=== PATIENT | female | born 1990 | race Caucasian/White ===

== ENCOUNTER 2017-12-17 06:29 | Day surgery (SDC) | payer SELFPAY ==
[~2017-12-17] VITALS: Ht 177.8 cm; Wt 68.0 kg
[~2017-12-17 06:29] MED LIST: HYDR-3583 PO; IBP600T1 PO; IBUP200C PO; PREN1TAB39 PO
--- OUTSIDE RECORDS SUMMARY | 2017-12-17 06:33 | XMS REPORT ---
Author Author MAGGIE RAMOS [facility] eClinicalWorks Address Unknown Phone Unavailable Care Team Providers Care Insurance Agency Sales Manager Name Role Phone MAGGIE RAMOS Unavailable Allergies No Known Allergies Problems Problem Type Condition Code Onset Dates Condition Status Problem Screening examination for venereal disease V74.5 Active Problem Leukorrhea, not specified as infective 623.5 Active Problem Supervision of normal first V22.0 Active Problem Nonspecific abnormal results of thyroid function study 794.5 Active Problem Unspecified contraceptive surveillance V25.40 Active Problem Acute pharyngitis 462 Active Problem Cellulitis and abscess of leg, except foot 682.6 Active Problem Screening for malignant neoplasm of the cervix V76.2 Active Problem Other and unspecified noninfectious gastroenteritis and colitis 558.9 Active Problem examination or test, negative result V72.41 Active Problem Routine follow-up V24.2 Active Medications Medication Code System Code Instructions Start Date End Date Status Dosage Loestrin Fe 09/11 [facility] [place] 2] [address]-25 1-20 MG-MCG Orally Once a day Sep 23, 2015 1 tablet Results No Known Results Summary Purpose eClinicalWorks Submission
--- OUTSIDE RECORDS SUMMARY | 2017-12-17 06:33 | XMS REPORT ---
Author Author CHINEDU CORTEZ [facility] eClinicalWorks Address Unknown Phone Unavailable Care Team Providers Care Store Stock Help Name Role Phone CHINEDU CORTEZ CP Unavailable Allergies, Adverse Reactions, Alerts Substance Reaction Event Type N.K.D.A. Info Not Available Non Drug Allergy Problems Problem Type Condition Code Onset Dates Condition Status Problem Supervision of normal first V22.0 Active Problem Other and unspecified noninfectious gastroenteritis and colitis 558.9 Active Problem Leukorrhea, not specified as infective 623.5 Active Problem Cellulitis and abscess of leg, except foot 682.6 Active Problem Unspecified contraceptive surveillance V25.40 Active Problem Bleeding of cervix N88.8 Active Problem Routine follow-up V24.2 Active Problem Screening for malignant neoplasm of the cervix V76.2 Active Problem Acute pharyngitis 462 Active Problem examination or test, negative result V72.41 Active Assessment Well woman exam Z01.419 Active Assessment Bleeding of cervix N88.8 Active Problem Nonspecific abnormal results of thyroid function study 794.5 Active Assessment Encounter for surveillance of contraceptive pills Z30.41 Active Problem Screening examination for venereal disease V74.5 Active Medications Medication Code System Code Instructions Start Date End Date Status Dosage Loestrin Fe 09/11 [facility] [place] [address]-91 1-20 MG-MCG Orally Once a day Sep 23, 2015 1 tablet Procedures Procedure Coding System Code Date N.GONORRHOEAE, DNA, AMP PROB CPT-4 07263 May 28, 2016 TRICHOMONAS ASSAY W/OPTIC CPT-4 18754 May 28, 2016 CHYLMD TRACH, DNA, AMP PROBE CPT-4 66150 May 28, 2016 CULTURE, BACTERIA, OTHER CPT-4 51185 May 28, 2016 ESPARZA VAG, DNA, DIR PROBE CPT-4 28961 May 28, 2016 Preventive Care Est Pt. Age 18-39 CPT-4 85832 May 28, 2016 Vital Signs Date/Time: May 28, 2016 Blood Pressure Systolic 110 mmHg Weight 143 lbs Height 70.5 in BMI 20.23 Index Blood Pressure Diastolic 68 mmHg Results Name Result Date Reference Range Unit Abnormality Flag GC/CHLAMYDIA (SWAB OR URINE)-RAPID ----Chlamydia trachomatis, COLLIN Negative [id number] Negative ----Neisseria gonorrhoeae, COLLIN Negative [id number] Negative CULTURE, GENITAL ----Genital Culture, Routine Final report [id number] TRICHOMONAS (IN HOUSE) ----TRICHOMONAS negative [id number] ----Control + [id number] ----Lot # [id number] ----Exp date [id number] BACTERIAL VAGINOSIS (IN HOUSE) ----Exp date [id number] ----Control + [id number] ----Lot # [id number] ----RESULTS negative [id number] Summary Purpose eClinicalWorks Submission
--- OUTSIDE RECORDS SUMMARY | 2017-12-17 06:33 | XMS REPORT ---
Author Author CHINEDU CORTEZ [facility] [place] eClinicalWorks Address Unknown Phone Unavailable Care Team Providers Care Water Regulator And Valve Repairer Name Role Phone CHINEDU CORTEZ Unavailable Allergies No Known Allergies Problems Problem Type Condition Code Onset Dates Condition Status Problem Supervision of normal first V22.0 Active Problem Other and unspecified noninfectious gastroenteritis and colitis 558.9 Active Problem Leukorrhea, not specified as infective 623.5 Active Problem Nonspecific abnormal results of thyroid function study 794.5 Active Problem Screening examination for venereal disease V74.5 Active Problem Cellulitis and abscess of leg, except foot 682.6 Active Problem Unspecified contraceptive surveillance V25.40 Active Problem Bleeding of cervix N88.8 Active Problem Routine follow-up V24.2 Active Problem Screening for malignant neoplasm of the cervix V76.2 Active Problem Acute pharyngitis 462 Active Problem examination or test, negative result V72.41 Active Medications Medication Code System Code Instructions Start Date End Date Status Dosage Amoxicillin [facility] [address]-38 500 MG Orally 2 times a day Jun 03, 2016 Jun 13, 2016 1 capsule Results No Known Results Summary Purpose eClinicalWorks Submission
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
--- OUTSIDE RECORDS SUMMARY | 2017-12-17 06:34 | XMS REPORT ---
Author Author MAGGIE RAMOS [facility] eClinicalWorks Address Unknown Phone Unavailable Care Team Providers Care Histotechnician Name Role Phone MAGGIE RAMOS Unavailable Allergies [...] End Date Status Dosage Loestrin Fe 09/11 [facility] [id number] 1-20 MG-MCG Orally Once a day Sep 23, 2015 1 tablet Results No Known Results Summary Purpose eClinicalWorks Submission
[2017-12-17] MEDS ORDERED: MIDAZOLAM 2 MG/2 ML (VERSED) VIAL IV ONE (07:00)
[2017-12-17] MEDS ORDERED: DEXAMETHASONE 10 MG/ML (DECADRON) 1 ML VIAL ONE (07:08)
[2017-12-17] MEDS ORDERED: MIDAZOLAM 2 MG/2 ML (VERSED) VIAL ONE (07:08)
[2017-12-17] MEDS ORDERED: proPOfol 200 MG/20 ML (DIPRIVAN) VIAL IV ONE (07:08)
[2017-12-17] MEDS ORDERED: ONDANSETRON 4 MG/2 ML (SDV) Z0FRAN ONE (07:08)
[2017-12-17] MEDS ORDERED: fentaNYL INJECTION 100 MCG/2 ML AMP ONE (07:08)
[2017-12-17 07:10] VITALS: BP 114/73
[2017-12-17] MEDS ORDERED: SEVOFLURANE (ULTANE) 15 ML INHAL SOLN ONE ×2 (07:10→08:48)
[2017-12-17] MEDS ORDERED: LIDOCAINE PF 2% 5 ML (XYLOCAINE) VIAL ONE (07:10)
--- NOTE | 2017-12-17 07:12 | Progress Note-Pre Operative ---
Pre-Operative Progress Note H&P Reviewed The H&P was reviewed, patient examined and no changes noted. Date Seen by Provider: Dec 17, 2017 Time Seen by Provider: 07:12 Date H&P Reviewed: Dec 17, 2017 Time H&P Reviewed: 07:10 Pre-Operative Diagnosis: CIN3, + endocervical margins CHUCK SUMMERS DO Dec 17, 2017 7:12 am
[2017-12-17] MEDS ORDERED: BUP/EPI 0.5% 1:200,000 (SENSORCAINE) 30 ML VIAL ONE (07:27)
[2017-12-17] MEDS ORDERED: LACTATED RINGERS 1,000 ML IV PRN (07:28)
[2017-12-17 07:43] LABS: BASOPHILS % (AUTO) 0 % (0-10); EOSINOPHILS # (AUTO) 0.2 10^3/uL (0.0-0.3); EOSINOPHILS % (AUTO) 4 % (0-10); HEMATOCRIT 39 % (35-52); HEMOGLOBIN 13.8 G/DL (11.5-16.0); LYMPHOCYTES # (AUTO) 1.4 X 10^3 (1.0-4.0); LYMPHOCYTES % (AUTO) 27 % (12-44); MEAN CORPUSCULAR HEMOGLOBIN 31 PG (25-34); MEAN CORPUSCULAR HGB CONC 35 G/DL (32-36); MEAN CORPUSCULAR VOLUME 89 FL (80-99); MEAN PLATELET VOLUME 9.8 FL (7.4-10.4); MONOCYTES # (AUTO) 0.5 X 10^3 (0.0-1.0); MONOCYTES % (AUTO) 10 % (0-12); NEUTROPHILS % (AUTO) 58 % (42-75); PLATELET COUNT 224 10^3/uL (130-400); RED BLOOD COUNT 4.41 10^6/uL (4.35-5.85); WHITE BLOOD COUNT 5.1 10^3/uL (4.3-11.0)
[2017-12-17] MEDS ORDERED: D5 LR IV SOLUTION 1,000 ML IV SCH (08:05)
[2017-12-17] MEDS ORDERED: IBUP-1773 PO (08:07)
--- NOTE | 2017-12-17 08:08 | Discharge Inst-Women's Service ---
Discharge Inst-Women's Serv Depart Medication/Instructions New, Converted or Re-Newed RX: RX on Chart Consults/Follow Up Additional Follow Up: Yes Orders/Referrals Dr. Summers in 3 weeks Activity Activity: Activity as Tolerated Driving Instructions: No Driving for 1 Week NO SMOKING: NO SMOKING Nothing Inside Vagina: No Douching, No [place], No Tampons Diet Discharge Diet: No Restrictions Symptoms to Report to : Bleeding Excessive, Pain Increased, Fever Over 101 Degrees F, Vaginal Bleeding Increase, Questions/Concerns For Any Problems or Questions: Contact Your Physician CHUCK SUMMERS DO Dec 17, 2017 8:07 am
[2017-12-17] MEDS ORDERED: KETOROLAC 30 MG/ML VIAL IVP ONE (08:15)
[2017-12-17] MEDS ORDERED: HYDROcodone/APAP 5 MG/325 MG (LORTAB) TAB PO PRN (08:15)
[2017-12-17] MEDS ORDERED: ONDANSETRON 4 MG/2 ML (SDV) Z0FRAN IVP PRN ×2 (08:15→09:00)
[2017-12-17] MEDS ORDERED: HYDROmorphone 2 MG/ML VIAL (DILAUDID) IVP PRN (09:00)
[2017-12-17] MEDS ORDERED: MEPERIDINE (DEMEROL) INJ 50 MG/ML IVP PRN (09:00)
[2017-12-17] MEDS ORDERED: fentaNYL INJECTION 100 MCG/2 ML AMP IVP PRN (09:00)
[2017-12-17 09:40] VITALS: BP 112/72
--- NOTE | 2017-12-17 09:50 | Anesthesia-General Post-Op ---
General Patient Condition Mental Status/LOC: Same as Preop Cardiovascular: Satisfactory Nausea/Vomiting: Absent Respiratory: Satisfactory Pain: Controlled Complications: Absent Post Op Complications Complications None Follow Up Care/Instructions Patient Instructions None needed. Anesthesia/Patient Condition Patient Condition Patient is doing well, no complaints, stable vital signs, no apparent adverse anesthesia problems. No complications reported per nursing. D/C home per [facility] Criteria: Yes JESSIKA BAE CRNA Dec 17, 2017 09:50
[2017-12-17 10:10] VITALS: BP 100/66
--- NOTE | 2017-12-17 10:29 | Anesthesia-General Post-Op ---
General Patient Condition Mental Status/LOC: Same as Preop Cardiovascular: Satisfactory Nausea/Vomiting: Absent Respiratory: Satisfactory Pain: Controlled Complications: Absent Post Op Complications Complications None Follow Up Care/Instructions Patient Instructions None needed. Anesthesia/Patient Condition Patient Condition Patient is doing well, no complaints, stable vital signs, no apparent adverse anesthesia problems. D/C home per [facility] Criteria: Yes ROCKY TRIANA DO Dec 17, 2017 10:29
[2017-12-17 10:40] VITALS: BP 102/63
[2017-12-17 10:55] VITALS: BP 102/63
--- NOTE | 2017-12-17 14:40 | OPERATIVE REPORT ---
DATE OF SERVICE: 12/17/2017 PREOPERATIVE DIAGNOSIS: A 27-year-old female with KATHLEEN 3 extending past the endocervical margin. POSTOPERATIVE DIAGNOSIS: A 27-year-old female with KATHLEEN 3 extending past the endocervical margin. PROCEDURE: Cold knife conization. SURGEON: Dr. Chuck Summers. ANESTHESIA: LMA. ESTIMATED BLOOD LOSS: Minimal. URINE OUTPUT: Not recorded. FLUIDS: 800 mL of lactated Ringer solution. FINDINGS: Grossly normal external female genitalia and vaginal mucosa with evidence of previous LEEP, conization and biopsy of the cervix. SPECIMEN SENT: Was cold knife conization of the cervix. INDICATION FOR PROCEDURE: This 27-year-old female is a patient that I had seen in my office on 2 previous occasions, one for colposcopy secondary to a high-grade Pap smear followed up by a conization biopsy via loop cauterization secondary to positive ECC and KATHLEEN 3. The biopsy results from her LEEP resulted in positive endocervical margins. So, I followed up with the patient and discussed with her short term follow up cytology versus proceeding with a deeper biopsy for the endocervical component in the form of performing a cold knife conization. Risks of the procedure were discussed with the patient in detail and after all of her questions were answered, she was scheduled for the procedure at her next earliest convenience. OPERATIVE REPORT IN DETAIL: Once in the operating room, anesthesia was found to be adequate. She was placed in dorsal lithotomy position, prepped and draped in a normal sterile fashion. A weighted speculum was inserted into the patient's vagina. A right angle retractor was used to visualize the cervix. Cervix was grasped at the 12 o'clock position using a long Allis clamp. I then performed a paracervical block at 3 and 9 o'clock positions using 0.25% Marcaine. After this was done, I infiltrated the margins of the transformation zone around the lateral resection margin of the cone biopsy using 0.25% Marcaine with epinephrine to help prevent significant amounts of bleeding. I also placed 2-0 Vicryl suture at 3 and 9 o'clock position on the cervix to limit the bleeding to the cervix as well during the biopsy. After this is done, I used an 11 blade to trace around the margins of the previous conization biopsy. I then grasped that biopsy area and using a curved Cota scissors, I resected the cone biopsy going up the endocervix and retrievement of specimen of a cone biopsy that I sent as a cold knife cone biopsy of the cervix after which there is significant amount of bleeding noted from the dissection planes, which I am able to make hemostatic using ball cautery. I place a Sturmdorf stitch around the margins of my dissection planes, which ensures excellent hemostasis. Cervical patency is evaluated after the procedure and the cervix is still open and the uterus still is able to be sounded. I then applied estrogen solution to the dissection planes to ensure excellent postoperative hemostasis. The patient tolerated the procedure well and was taken to recovery area in stable condition after all instruments were removed from the patient's vagina. Lap and sponge count was correct at the end of the procedure, instrument count was correct as well. Job ID: [id number] DocumentID: [id number] Dictated Date: 12/17/2017 09:07:06 Sociology Faculty Member Date: 12/17/2017 14:40:36 Dictated By: CHUCK SUMMERS DO
== END 2017-12-17 10:55 | disposition home or self-care (01) ==
LOC: SDC 06:29
PROVIDERS: ATTEND Obstetrics & Gynecology
DX: N87.0 Mild cervical dysplasia (principal)
CPT/HCPCS: 36415; 84703; 85025; 86850; 86900; 86901; 87081; 88307; 94664

== ENCOUNTER 2019-01-18 01:21 | Emergency (ER) | payer SELFPAY ==
[~2019-01-18] VITALS: Ht 177.8 cm; Wt 68.0 kg
[~2019-01-18 01:21] MED LIST changes: +IBUP-1773 PO
[2019-01-18] MEDS: TETANUS,DIPTH,PERTUSS P/F (BOOSTRIX) 0.5 ML VIAL IM ONE (01:39)
[2019-01-18] MEDS: LIDOCAINE/EPI 2% 1:100,00 (XYLOCAINE) 20 ML VIAL INJ ONE (01:40)
--- NOTE | 2019-01-18 02:10 | ED General ---
General Chief Complaint: Laceration Stated Complaint: LEFT LEG LAC Nursing Triage Note: LEFT LEG LACERATION Nursing Sepsis Screen: No Definite Risk Source of Information: Patient Exam Limitations: No Limitations History of Present Illness Date Seen by Provider: January 18, 2019 Time Seen by Provider: 01:25 Initial Comments This 28-year-old woman presents to the emergency room with a laceration on her left anterior lower leg. She was carrying a bag of trash with a broken beer bottle and it. The broken glass was sticking out of the trash bag cut her. She attempted to Steri-Strip and superglue it. This was not effective and she continued to have bleeding. Injury happened around 23:00. She does not know when her last tetanus immunization was. She denies any other injury. Allergies and Home Medications Allergies Coded Allergies: No Known Drug Allergies (Unverified , 12/14/17) Home Medications No Active Prescriptions or Reported Meds Patient Home Medication List Home Medication List Reviewed: Yes Review of Systems Review of Systems Constitutional: no symptoms reported EENTM: no symptoms reported Respiratory: no symptoms reported Cardiovascular: no symptoms reported Gastrointestinal: no symptoms reported Genitourinary: no symptoms reported Musculoskeletal: no symptoms reported Skin: see HPI Psychiatric/Neurological: No Symptoms Reported Past Evqihqp-Ljerht-Qgiapi Hx Past Med/Social Hx: Reviewed Nursing Past Med/Soc Hx Patient Social History Alcohol Use: Occasionally Uses Recreational Drug Use: No Smoking Status: Never a Smoker 2nd Hand Smoke Exposure: Yes Recent Foreign Travel: No Contact w/Someone Who Travel: No Recent Infectious Disease Expo: No Recent Hopitalizations: No Immunizations Up To Date Tetanus Booster (TDap): Unknown PED Vaccines UTD: Yes Seasonal Allergies Seasonal Allergies: No Past Medical History Surgeries: Yes Section Respiratory: No Cardiac: No Neurological: No : No Last Menstrual Period: December 28, 2018 Reproductive Disorders: Yes Genitourinary: No Gastrointestinal: No Musculoskeletal: No Endocrine: No HEENT: No Cancer: No Psychosocial: No Integumentary: No Blood Disorders: No Family Medical History No Pertinent Family Hx Physical Exam Vital Signs Vital Signs - First Documented 01/18/19 01:27 Temp 97.0 Pulse 90 Resp 18 B/P (MAP) 142/77 (98) Pulse Ox 99 O2 Delivery Room Air Capillary Refill : Less Than 3 Seconds Height, Weight, BMI Height: 5'10.00" Weight: 150lbs. 0.0oz. 68.452915ba; 21.5 BMI Method:Stated General Appearance: No Apparent Distress, WD/WN HEENT: Normal ENT Inspection Respiratory: No Respiratory Distress Extremity: Other (3 cm laceration on the anterior left lower) Neurologic/Psychiatric: Alert, Oriented x3, No Motor/Sensory Deficits, Normal Mood/Affect, it business process architect II-XII Norm as Tested Skin: Normal Color, Warm/Dry, Other (see above) Procedures/Interventions Wound Location: Lower Extremities Other Wound Location Anterior left lower leg Wound Length (cm): 3 Wound's Depth, Shape: linear, sub Q Wound Explored: clean Irrigated w/ Saline (ccs): 500 Betadine Prep?: Yes Anesthesia: Lidocaine w/ Epi Volume Anesthetic (ccs): 2 Suture: Prolene Suture Size: 4-0 Number of Sutures: 6 Sterile Dressing Applied?: Yes Progress Cut surface was sprayed with lidocaine with epinephrine. Skin was cleaned with alcohol. Local anesthetic was injected. Wound was then scrubbed with sterile saline and chlorhexidine. It was then irrigated with sterile saline. Skin was then prepped with Betadine and wound was approximated with 4-0 Prolene. Wound was then dressed with a large Band-Aid and antibiotic ointment. Patient tolerated the procedure well. Progress/Results/Core Measures Suspected Sepsis Recent Fever Within 48 Hours: No Infection Criteria Present: None New/Unexplained Altered Menta: No Sepsis Screen: No Definite Risk SIRS Temperature:97.0 Pulse: 90 Respiratory Rate: 18 Blood Pressure 142 /77 Mean: 98 Results/Orders My Orders Orders - JAROCHO WASHBURN MD Lidocaine/Epi 2% 1:100,000 (Xylocaine/Ep (01/18/19 01:45) Dipht,Pertuss(Acell),Tet Adult (Boostrix (01/18/19 01:45) Sulfamethoxazole/Trimet Ds Tab (Bactrim (01/18/19 02:15) Medications Given in ED Current Medications Medications Dose Ordered Sig/Paul Route Start Time Stop Time Status Last Admin Dose Admin Diphtheria/ Tetanus/Acell Pertussis 0.5 ml ONCE ONCE IM 01/18/19 01:45 01/18/19 01:46 DC 01/18/19 01:39 0.5 ML Lidocaine/ Epinephrine 20 ml ONCE ONCE INJ 01/18/19 01:45 01/18/19 01:46 DC 01/18/19 01:40 20 ML Trimethoprim/ Sulfamethoxazole 1 ea ONCE ONCE PO 01/18/19 02:15 01/18/19 02:16 DC 01/18/19 02:17 1 EA Vital Signs/I&O 01/18/19 01:27 Temp 97.0 Pulse 90 Resp 18 B/P (MAP) 142/77 (98) Pulse Ox 99 O2 Delivery Room Air Capillary Refill : Less Than 3 Seconds Blood Pressure Mean: 98 Progress Note : Progress Note Wound was cleaned and repaired. Tetanus booster was administered. A dose of Bactrim was administered for infection prophylaxis. Departure Impression Primary Impression: Laceration of leg Qualified Codes: S81.812A - Laceration without foreign body, left lower leg, initial encounter Disposition: HOME, SELF-CARE Condition: Improved Departure-Patient Inst. Decision time for Depature: 02:00 Referrals: [facility] (PCP) Primary Care Physician CHUCK SUMMERS DO (Family) Primary Care Physician Patient Instructions: Laceration Repair With Stitches (DC) Add. Discharge Instructions: Monitor your wound for signs of infection such as increasing redness, increasing swelling, puslike drainage, or fever. Return to care promptly if you notice these symptoms. You may shower and allow soapy water to run over your wound. Do not scrub directly over the stitches. Do not submerge until stitches are removed. Return in 7-10 days to have your stitches removed. You may take Tylenol and/or ibuprofen for pain. Cover when active or sleeping to prevent stitches from snagging. All discharge instructions reviewed with patient and/or family. Voiced understanding. Scripts No Active Prescriptions or Reported Meds JAROCHO WASHBURN MD January 18, 2019 02:10
[2019-01-18 02:15] VITALS: BP 142/77
[2019-01-18] MEDS: TRIM/SULFAMETH 160/800 (SEPTRA DS) TAB PO ONE (02:17)
== END 2019-01-18 02:17 | disposition home or self-care (01) ==
LOC: EDUNIT# 01:21 → ER 01:23
DX: S81.812A Laceration without foreign body, left lower leg, initial encounter (principal); Z77.22 Contact with and (suspected) exposure to environmental tobacco smoke (acute) (chronic); Z98.890 Other specified postprocedural states; Z23 Encounter for immunization; Y28.0XXA Contact with sharp glass, undetermined intent, initial encounter
CPT/HCPCS: 12013; 90471; 90715

== ENCOUNTER 2019-01-26 17:32 | Emergency (ER) | payer SELFPAY ==
[~2019-01-26] VITALS: Ht 177.8 cm; Wt 68.0 kg
[2019-01-26 17:39] VITALS: BP 136/69
--- OUTSIDE RECORDS SUMMARY | 2019-01-26 17:53 | XMS REPORT ---
Author Author Migration, Doctor Organization [facility] Address Unknown Phone Unavailable Care Team Providers Care Substation Engineer Name Role Phone Migration, Doctor Unavailable Unavailable PROBLEMS No Known Problems ALLERGIES No Information ENCOUNTERS Encounter Location Date Diagnosis [facility] [id number] [place] [address] Aug, Acute tonsillitis, unspecified etiology J03.90 [facility] [place] [address] [address] Oct, [facility] [place] [id number] [place] [address] Sep, Well woman exam Z01.419 ; Possible exposure to STD Z20.2 and control counseling Z30.[address] [id number] Nov, Encounter for surveillance of contraceptive pills Z30.[address] [id number] May, [address] [id number] May, Bleeding of cervix N88.8 ; Well woman exam Z01.419 and Encounter for surveillance of contraceptive pills Z30.41 [id number] [place] [id number] Nov, [id number] [place] [id number] Oct, [address] [id number] Sep, [address] [id number] Mar, [address] [id number] Mar, [address] [id number] [id number] Mar, Missed period 626.4 and Screening for STD (sexually transmitted disease) V74.5 [facility] [address], [place] [address] Nov, [facility] [place] [facility] [address], [place] [address] Nov, [facility] [place] [facility] [address], [place] [address] Aug, [facility] [id number] [id number] Aug, [facility] [address], [place] [address] Aug, [facility] [id number] [id number] Aug, [facility] [address], [place] [address] Aug, [facility] [id number] [id number] Jul, [facility] [address], [place] [address] Jul, [facility] [address] [id number] [id number] Jun, [facility] [id number], [place] [address] Jun, [facility] [address] [id number] [id number] Jun, [facility] [place] [address], [place] [address] Jun, [facility] [address] [id number][place] [id number] Jul, [facility] [place] [address], [place] [address] Jul, [facility] [place] [facility] [address] [id number], [place] [address] Jun, [facility] [address] [id number] [place] [id number] Jun, [facility] [place] [facility] [address] [id number] [place] [address] Jun, [facility] [place] [facility] [address] [id number] [place] [address] Jun, [facility] [address] [id number] [place] [id number] Mar, [facility] [address] [id number] [place] [id number] Oct, [facility] [address] [id number] [place] [id number] Jun, [facility] [address] [id number] [place] [id number] Jun, [facility] [place] [facility] [address] [facility] [id number], [place] [address] Jun, [facility] [place] [facility] [address] [facility] [id number], [place] [address] Jun, [facility] [place] [facility] [address] [facility] [id number], [place] [address] Jun, [facility] [place] [facility] [address] [facility] [id number], [place] [address] Jun, [facility] [address] [id number][place] [id number] Jun, [facility] [address] [id number], [place] [address] Jun, [facility] [address] [id number] [place] [id number] Jun, [facility] [place] [facility] [address] [id number], [place] [address] Jun, [facility] [address] [id number][place] [id number] Feb, [facility] [address] [id number] [place] [id number] Feb, [facility] [address] [facility] [id number], [place] [address] Feb, [facility] [address] [id number] [place] [id number] Feb, [facility] [address] [id number] [place] [id number] Feb, [facility] [address] [id number] [place] [id number] Jan, [facility] [address] [facility] [id number], [place] [address] Jan, [facility] [address] [facility] [id number], [place] [address] Jan, [facility] [address] [id number] [place] [id number] Jan, [facility] [address], [place] [address] Jan, [facility] [address] [id number] [place] [id number] December, [facility] [address] [id number] [place] [id number] December, [facility] [address] [id number] [place] [id number] December, [facility] [address] [facility] [id number], [place] [address] December, [facility] [address] [id number] [place] [id number] Nov, [facility] [address] [id number] [place] [id number] Oct, [facility] [address] [id number] [place] [id number] Oct, [facility] [address] [id number] [place] [id number] Oct, [facility] [address] [facility] [id number], [place] [address] Oct, [facility] [address] [facility] [id number], [place] [address] Oct, [facility] [address] [facility] [id number], [place] [address] Sep, [facility] [address] [facility] [id number] [place] [id number] Aug, [facility] [address] [id number] [place] [id number] Aug, [facility] [address] [facility] [id number] [place] [id number] Aug, [facility] [address] [facility] [id number] [place] [address] 15 Aug, 2011 [facility] [address], [place] [address] 14 Aug, 2011 [facility] [id number] [place] [id number] 13 Aug, 2011 [facility] [address] [facility] [id number] [place] [id number] 12 Aug, 2011 [facility] [id number], [place] [address] Jul, [facility] [place] [facility] [id number], [place] [address] 08 Jul, 2011 [facility] [place] [facility] [id number], [place] [address] 10 Sep, 2010 [facility] [place] [facility] [address] [facility] [id number], [place] [address] Aug, [facility] [place] [facility] [id number] [place] [address] Jul, [facility] [address] [facility] [id number], [place] [address] Jun, [facility] [place] [id number], [place] [address] Jul, [facility] [place] [address] [facility] [id number] [place] [address] Jul, [facility] [place] [address] [facility] [id number] [place] [address] Jul, IMMUNIZATIONS No Known Immunizations SOCIAL HISTORY Never Assessed REASON FOR VISIT EMR-[facility] PLAN OF CARE VITAL SIGNS MEDICATIONS No Known Medications RESULTS No Results PROCEDURES No Known procedures INSTRUCTIONS MEDICATIONS ADMINISTERED No Known Medications MEDICAL (GENERAL) HISTORY Type Description Date Surgical History section 2011 Surgical History cell removal, cervix 12/2017
--- OUTSIDE RECORDS SUMMARY | 2019-01-26 17:54 | XMS REPORT ---
Author Author Migration, Doctor Organization [facility] Address Unknown Phone Unavailable Care Team Providers Care Volunteer Manager Name Role Phone Migration, Doctor Unavailable Unavailable PROBLEMS No Known Problems ALLERGIES No Information ENCOUNTERS Encounter Location Date Diagnosis [facility] [id number] [place] [address] Aug, Acute tonsillitis, unspecified etiology J03.90 [facility] [address] [address] Oct, [facility] [id number] [place] [address] Sep, Well woman exam Z01.419 ; Possible exposure to STD Z20.2 and control counseling Z30.[address] [id number] Nov, Encounter for surveillance of contraceptive pills Z30.[address] [id number] May, [address] [id number] May, Bleeding of cervix N88.8 ; Well woman exam Z01.419 and Encounter for surveillance of contraceptive pills Z30.41 [id number] [place] [id number] Nov, [id number] [place] [id number] Oct, [address] [id number] Sep, [address] [id number] Mar, [address] [id number] Mar, [address] [id number] [id number] Mar, Missed period 626.4 and Screening for STD (sexually transmitted disease) V74.5 [facility] [address]00565[address], [place] [address] Nov, [facility] [place] [facility] [address]65[address], [place] [address] Nov, [facility] [place] [facility] [address]65[address], [place] [address] Aug, [facility] [id number], [place] [id number] Aug, [facility] [address], [place] [address] Aug, [facility] [id number], [place] [id number] Aug, [facility] [address], [place] [address] Aug, [facility] [id number], [place] [id number] Jul, [facility] [address]00565[address], [place] [address] Jul, [facility] [address] [id number], [place] [address] Jun, [facility] [address] [id number], [place] [address] Jun, [facility] [address] [id number][place] [address]18[address] Jun, [facility] [place] [facility] [address]00565100[place], [place] [address] Jun, [facility] [address] [id number][place] 17[address]36[address] Jul, [facility] [place] [facility] [address]00565100[place], [place] [address] Jul, [facility] [place] [facility] [address] [id number], [place] [address] Jun, [facility] [address] [id number] [place] [id number] Jun, [facility] [place] [facility] [address] [id number] [place] [address] Jun, [facility] [place] [facility] [address] [id number] [place] [address] Jun, [facility] [address] [id number] [place] [id number] Mar, [facility] [address] [id number] [place] [id number] Oct, [facility] [address] [id number] [place] [id number] Jun, [facility] [address] [id number] [place] [id number] Jun, [facility] [place] [facility] [address] [facility] [id number], [place] [address] Jun, [facility] [place] [facility] [address] [facility] [id number], [place] [address] Jun, [facility] [place] [facility] [address] [facility] [id number], [place] [address] Jun, [facility] [place] [facility] [address] [facility] [id number], [place] [address] Jun, [facility] [address] [id number], [place] [id number] Jun, [facility] [place] [facility] [address] [id number], [place] [address] Jun, [facility] [address] [id number] [place] [id number] Jun, [facility] [place] [facility] [address] [id number], [place] [address] Jun, [facility] [address] [id number], [place] 466350393 Feb, [facility] [address] [id number] [place] [id number] Feb, [facility] [address] [facility] [id number], [place] [address] Feb, [facility] [address] [id number] [place] [id number] Feb, [facility] [address] [id number] [place] 028839659 Feb, [facility] [address] [id number] [place] [id number] Jan, [facility] [place] [facility] [address] [facility] [id number], [place] [address] Jan, [facility] [place] [facility] [address] [facility] [id number], [place] [address] Jan, [facility] [address] [id number] [place] [id number] Jan, [facility] [address]00565100[place], [place] [address] Jan, [facility] [address] [id number] [place] 565465394 December, [facility] [address] [id number] [place] [id number] December, [facility] [address] [id number] [place] [id number] December, [facility] [address] [facility] [id number], [place] [address] December, [facility] [address] [id number] [place] [id number] Nov, [facility] [address] [id number] [place] 187579299 Oct, [facility] [address] [id number] [place] [id number] Oct, [facility] [address] [id number] [place] [id number] Oct, [facility] [address] [facility] [id number], [place] [address] Oct, [facility] [address] [facility] [id number], [place] [address] Oct, [facility] [address] [facility] [id number], [place] [address] Sep, [facility] [address] [facility] [id number] [place] [id number] Aug, [facility] [address] [id number] [place] [id number] Aug, [facility] [address] [facility] [id number] [place] [id number] Aug, [facility] [address] [facility] [id number] [place] [address] 15 Aug, 2011 [facility] [address]00565100[place], [place] [address] 14 Aug, 2011 [facility] [id number] [place] [id number] 13 Aug, 2011 [facility] [address] [facility] [id number] [place] [id number] 12 Aug, 2011 [facility] [address]00565100[place], [place] [address] Jul, [facility] [place] [facility] [address]00565100[place], [place] [address] 08 Jul, 2011 [facility] [place] [facility] [address]00565100[place], [place] [address] 10 Sep, 2010 [facility] [place] [facility] [address] [facility] [id number], [place] [address] Aug, [facility] [place] [facility] [id number] [address] Jul, [facility] [place] [facility] [address] [facility] [id number], [place] [address] Jun, [facility] [place] [facility] [address]00565100[place], [place] [address] Jul, [facility] [address] [facility] [id number] [place] [address] Jul, [facility] [address] [facility] [id number] [place] [address] Jul, IMMUNIZATIONS No Known Immunizations SOCIAL HISTORY Never Assessed REASON FOR VISIT EMR-[facility] PLAN OF CARE VITAL SIGNS MEDICATIONS Medication Instructions Dosage Frequency Start Date End Date Duration Status Keflex 250 mg 2 capsule by Oral route 2 times per day for 10 days Mar, Active RESULTS No Results PROCEDURES No Known procedures INSTRUCTIONS MEDICATIONS ADMINISTERED No Known Medications MEDICAL (GENERAL) HISTORY Type Description Date Surgical History section 2011 Surgical History cell removal, cervix 12/2017
--- OUTSIDE RECORDS SUMMARY | 2019-01-26 17:54 | XMS REPORT ---
Author Author Migration, Doctor Organization [facility] Address Unknown Phone Unavailable Care Team Providers Care Hall Manager Name Role Phone Migration, Doctor Unavailable Unavailable PROBLEMS No Known Problems ALLERGIES No Information ENCOUNTERS Encounter Location Date Diagnosis [facility] [id number] [place] [address] Aug, Acute tonsillitis, unspecified etiology J03.90 [facility] [address] [address] Oct, [facility] [id number] [place] [address] Sep, Well woman exam Z01.419 ; Possible exposure to STD Z20.2 and control counseling Z30.[address] [id number] Nov, Encounter for surveillance of contraceptive pills Z30.[address] [id number] May, [address] [id number] May, Bleeding of cervix N88.8 ; Well woman exam Z01.419 and Encounter for surveillance of contraceptive pills Z30.41 [id number] [place] [address] [id number] Nov, [id number] [place] [address] [id number] Oct, [address] [id number] Sep, [address] [id number] Mar, [address] [id number] Mar, [address] [id number][place] 145578368 Mar, Missed period 626.4 and Screening for STD (sexually transmitted disease) V74.5 [facility] [address]00565100[place] [address] Nov, [facility] [place] [facility] [address]00565100[place] [address] Nov, [facility] [place] [facility] [address]00565100[place] [address] Aug, [facility] [id number], [place] 544[address]2346 Aug, [facility] [address]00565[address] [address] Aug, [facility] [id number], [place] 3[address]00047 Aug, [facility] [address]00565100[place] [address] Aug, [facility] [id number], [place] [id number] Jul, [facility] [address]00565100[place] [address] Jul, [facility] [address] [id number], [place] 897647129 Jun, [facility] [address] [id number] [address] Jun, [facility] [address] [id number], [place] 4738[address]306 Jun, [facility] [place] [facility] [address]00565100[place] [address] Jun, [facility] [address] [id number][place] [address]1870 Jul, [facility] [place] [facility] [address]00565100[place] [address] Jul, [facility] [place] [facility] [address] [id number] [address] Jun, [facility] [address] [id number] [place] [address] Jun, [facility] [place] [facility] [address] [id number] [place] [address] Jun, [facility] [place] [facility] [address] [id number] [place] [address] Jun, [facility] [address] [id number] [place] [id number] Mar, [facility] [address] [id number] [place] [id number] Oct, [facility] [address] [id number] [place] [id number] Jun, [facility] [address] [id number] [place] 167988852 Jun, [facility] [place] [facility] [address] [facility] [id number] [place] [address] Jun, [facility] [place] [facility] [address] [facility] [id number] [place] [address] Jun, [facility] [place] [facility] [address] [facility] [id number] [place] [address] Jun, [facility] [place] [facility] [address] [facility] [id number] [address] Jun, [facility] [address] [id number], [place] 023551279 Jun, [facility] [place] [facility] [address] [id number] [place] [address] Jun, [facility] [address] [id number] [place] [id number] Jun, [facility] [place] [facility] [address] [id number] [place] [address] Jun, [facility] [address] [id number], [place] 499244606 Feb, [facility] [address] [id number] [place] 692170070 Feb, [facility] [address] [facility] [id number] [place] [address] Feb, [facility] [address] [id number] [place] 528425760 Feb, [facility] [address] [id number] [place] 600334768 Feb, [facility] [address] [id number] [place] 110676058 Jan, [facility] [place] [facility] [address] [facility] [id number] [place] [address] Jan, [facility] [place] [facility] [address] [facility] [id number] [place] [address] Jan, [facility] [address] [id number] [place] [id number] Jan, [facility] [address]00565100[place] [address] Jan, [facility] [address] [id number] [place] 037415628 December, [facility] [address] [id number] [place] 716339527 December, [facility] [address] [id number] [place] 118143391 December, [facility] [address] [facility] [id number] [place] [address] December, [facility] [address] [id number] [place] 268225031 Nov, [facility] [address] [id number] [place] 260808131 Oct, [facility] [address] [id number] [place] 373909845 Oct, [facility] [address] [id number] [place] [id number] Oct, [facility] [address] [facility] [id number] [place] [address] Oct, [facility] [address] [facility] [id number] [place] [address] Oct, [facility] [address] [facility] [id number] [place] [address] Sep, [facility] [address] [facility] [id number] [place] [id number] Aug, [facility] [address] [id number] [place] [id number] Aug, [facility] [address] [facility] [id number] [place] 433840791 Aug, [facility] [address] [facility] [id number] [place] [address] 15 Aug, 2011 [facility] [address]00565100[place] [address] 14 Aug, 2011 [facility] [id number] [place] [id number] 13 Aug, 2011 [facility] [address] [facility] [id number] [place] [id number] 12 Aug, 2011 [facility] [address]00565100[place] [address] Jul, [facility] [place] [facility] [address]00565100[place] [address] 08 Jul, 2011 [facility] [place] [facility] [address]00565100[place] [address] 10 Sep, 2010 [facility] [place] [facility] [address] [facility] [id number] [place] [address] Aug, [facility] [place] [facility] [address] [id number] [place] [address] Jul, [facility] [place] [facility] [address] [facility] [id number] [place] [address] Jun, [facility] [place] [facility] [address]00565100[place] [address] Jul, [facility] [address] [facility] [id number] [place] [address] Jul, [facility] [address] [facility] [id number] [place] [address] Jul, IMMUNIZATIONS No Known Immunizations SOCIAL HISTORY Never Assessed REASON FOR VISIT EMR-[facility] [place] [place] PLAN OF CARE VITAL SIGNS MEDICATIONS No Known Medications RESULTS No Results PROCEDURES No Known procedures INSTRUCTIONS MEDICATIONS ADMINISTERED No Known Medications MEDICAL (GENERAL) HISTORY Type Description Date Surgical History section 2011 Surgical History cell removal, cervix 12/2017
--- OUTSIDE RECORDS SUMMARY | 2019-01-26 17:54 | XMS REPORT ---
Author Author Migration, Doctor Organization [facility] Address Unknown Phone Unavailable Care Team Providers Care Public Weigher Name Role Phone Migration, Doctor Unavailable Unavailable PROBLEMS No Known Problems ALLERGIES No Information ENCOUNTERS Encounter Location Date Diagnosis [facility] [id number] [place] [address] Aug, Acute tonsillitis, unspecified etiology J03.90 [facility] [address] [address] Oct, [facility] [id number] [place] [address] Sep, Well woman exam Z01.419 ; Possible exposure to STD Z20.2 and control counseling Z30.[address] [id number] Nov, Encounter for surveillance of contraceptive pills Z30.[address] [id number] May, [address] [id number] May, Bleeding of cervix N88.8 ; Well woman exam Z01.419 and Encounter for surveillance of contraceptive pills Z30.41 [id number] [place] [address] [id number] Nov, [id number] [place] [id number] Oct, [address] [id number] Sep, [address] [id number] Mar, [address] [id number] Mar, [address] [id number], [place] [id number] Mar, Missed period 626.4 and Screening for STD (sexually transmitted disease) V74.5 [facility] [address]00565100[place], [place] [address] Nov, [facility] [place] [facility] [address]00565100[place], [place] [address] Nov, [facility] [place] [facility] [address]00565100[place], [place] [address] Aug, [facility] [id number], [place] [id number] Aug, [facility] [address]00565100[place], [place] [address] Aug, [facility] [id number], [place] 422[address]8544 Aug, [facility] [address]00565100[place], [place] [address] Aug, [facility] [id number], [place] 685155352 Jul, [facility] [address]00565100[place], [place] [address] Jul, [facility] [address] [id number], [place] 538328802 Jun, [facility] [address] [id number], [place] [address] Jun, [facility] [address] [id number], [place] 388779668 Jun, [facility] [place] [facility] [address]00565100[place], [place] [address] Jun, [facility] [address] [id number], [place] 291969737 Jul, [facility] [place] [facility] [address]00565100[place], [place] [address] Jul, [facility] [place] [facility] [address] [id number], [place] [address] Jun, [facility] [address] [id number] [place] 857[address]34[address] Jun, [facility] [place] [facility] [address] [id number] [place] [address] Jun, [facility] [place] [facility] [address] [id number] [place] [address] Jun, [facility] [address] [id number] [place] [id number] Mar, [facility] [address] [id number] [place] 114[address] Oct, [facility] [address] [id number] [place] 88[address] Jun, [facility] [address] [id number] [place] 099782265 Jun, [facility] [place] [facility] [address] [facility] [id number], [place] [address] Jun, [facility] [place] [facility] [address] [facility] [id number], [place] [address] Jun, [facility] [place] [facility] [address] [facility] [id number], [place] [address] Jun, [facility] [place] [facility] [address] [facility] [id number], [place] [address] Jun, [facility] [address] [id number] [id number] Jun, [facility] [place] [facility] [address] [id number], [place] [address] Jun, [facility] [address] [id number] [place] [id number] Jun, [facility] [place] [facility] [address] [id number], [place] [address] Jun, [facility] [address] [id number][place] [id number] Feb, [facility] [address] [id number] [place] [id number] Feb, [facility] [address] [facility] [id number], [place] [address] Feb, [facility] [address] [id number] [place] [id number] Feb, [facility] [address] [id number] [place] [id number] Feb, [facility] [address] [id number] [place] [id number] Jan, [facility] [place] [facility] [address] [facility] [id number], [place] [address] Jan, [facility] [place] [facility] [address] [facility] [id number], [place] [address] Jan, [facility] [address] [id number] [place] [id number] Jan, [facility] [id number], [place] [address] Jan, [facility] [address] [id number] [place] [id number] December, [facility] [address] [id number] [place] [id number] December, [facility] [address] [id number] [place] [id number] December, [facility] [address] [facility] [id number], [place] [address] December, [facility] [address] [id number] [place] [id number] Nov, [facility] [address] [id number] [place] [id number] Oct, [facility] [address] [id number] [place] [id number] Oct, [facility] [address] [id number] [place] [id number] Oct, [facility] [address] [facility] [id number], [place] [address] Oct, [facility] [address] [facility] [id number], [place] [address] Oct, [facility] [address] [facility] [id number], [place] [address] Sep, [facility] [address] [facility] [id number] [place] [id number] Aug, [facility] [address] [id number] [place] [id number] Aug, [facility] [address] [facility] [id number] [place] [id number] Aug, [facility] [address] [facility] [id number] [place] [address] 15 Aug, 2011 [facility] [id number], [place] [address] 14 Aug, 2011 [facility] [id number] [place] [id number] 13 Aug, 2011 [facility] [address] [facility] [id number] [place] [id number] 12 Aug, 2011 [facility] [id number], [place] [address] Jul, [facility] [place] [facility] [id number], [place] [address] 08 Jul, 2011 [facility] [place] [facility] [id number], [place] [address] 10 Sep, 2010 [facility] [place] [facility] [address] [facility] [id number], [place] [address] Aug, [facility] [place] [facility] [id number] [address] Jul, [facility] [place] [facility] [address] [facility] [id number], [place] [address] Jun, [facility] [place] [facility] [id number], [place] [address] Jul, [facility] [address] [facility] [id number] [place] [address] Jul, [facility] [address] [facility] [id number] [place] [address] Jul, IMMUNIZATIONS No Known Immunizations SOCIAL HISTORY Never Assessed REASON FOR VISIT EMR-[facility] [place] PLAN OF CARE VITAL SIGNS MEDICATIONS No Known Medications RESULTS No Results PROCEDURES No Known procedures INSTRUCTIONS MEDICATIONS ADMINISTERED No Known Medications MEDICAL (GENERAL) HISTORY Type Description Date Surgical History section 2011 Surgical History cell removal, cervix 12/2017
--- OUTSIDE RECORDS SUMMARY | 2019-01-26 17:54 | XMS REPORT ---
Author Author Migration, Doctor Organization [facility] Address Unknown Phone Unavailable Care Team Providers Care Paint Factory Worker Name Role Phone Migration, Doctor Unavailable Unavailable PROBLEMS No Known Problems ALLERGIES No Information ENCOUNTERS Encounter Location Date Diagnosis [facility] [id number] [place] [address] Aug, Acute tonsillitis, unspecified etiology J03.90 [facility] [address] [address] Oct, [facility] [id number] [place] [address] Sep, Well woman exam Z01.419 ; Possible exposure to STD Z20.2 and control counseling Z30.[address] [id number] Nov, Encounter for surveillance of contraceptive pills Z30.[address] [id number] May, [address] [id number] May, Bleeding of cervix N88.8 ; Well woman exam Z01.419 and Encounter for surveillance of contraceptive pills Z30.41 [id number] [place] [id number] Nov, [id number] [place] [id number] Oct, [address] [id number] Sep, [address] [id number] Mar, [address] [id number] Mar, [address] [id number] [id number] Mar, Missed period 626.4 and Screening for STD (sexually transmitted disease) V74.5 [facility] [address] [address] Nov, [facility] [place] [facility] [id number] [address] Nov, [facility] [place] [facility] [address] [address] Aug, [facility] [id number][place] [id number] Aug, [facility] [address]100[place] [address] Aug, [facility] [id number], [place] [id number] Aug, [facility] [address] [address] Aug, [facility] [id number], [place] [address] Jul, [facility] [address]65100[place] [address] Jul, [facility] [address] [id number] [id number] Jun, [facility] [address] [id number] [address] Jun, [facility] [address] [id number] [address]47870 Jun, [facility] [place] [facility] [address]100[place] [address] Jun, [facility] [address] [id number], [place] [address] Jul, [facility] [place] [facility] [address]65100[place] [address] Jul, [facility] [place] [facility] [address] [id number] [place] [address] Jun, [facility] [address] [id number] [place] [id number] Jun, [facility] [place] [facility] [address] [id number] [place] [address] Jun, [facility] [place] [facility] [address] [id number] [place] [address] Jun, [facility] [address] [id number] [place] [id number] Mar, [facility] [address] [id number] [place] [id number] Oct, [facility] [address] [id number] [place] [id number] Jun, [facility] [address] [id number] [place] [id number] Jun, [facility] [place] [facility] [address] [facility] [id number] [place] [address] Jun, [facility] [place] [facility] [address] [facility] [id number] [place] [address] Jun, [facility] [place] [facility] [address] [facility] [id number] [place] [address] Jun, [facility] [place] [facility] [address] [facility] [id number] [place] [address] Jun, [facility] [address] [id number], [place] [id number] Jun, [facility] [place] [facility] [address] [id number] [place] [address] Jun, [facility] [address] [id number] [place] [id number] Jun, [facility] [place] [facility] [address] [id number] [place] [address] Jun, [facility] [address] [id number], [place] 6896069[address] Feb, [facility] [address] [id number] [place] 3478[address] Feb, [facility] [address] [facility] [id number] [place] [address] Feb, [facility] [address] [id number] [place] [address]88[address]23[address] Feb, [facility] [address] [id number] [place] 0979[address] Feb, [facility] [address] [id number] [place] [id number] Jan, [facility] [place] [facility] [address] [facility] [id number] [place] [address] Jan, [facility] [place] [facility] [address] [facility] [id number] [address] Jan, [facility] [address] [id number] [place] [id number] Jan, [facility] [address]00565100[place] [address] Jan, [facility] [address] [id number] [place] [id number] December, [facility] [address] [id number] [place] 6[address]47[address] December, [facility] [address] [id number] [place] [address] December, [facility] [address] [facility] [id number] [place] [address] December, [facility] [address] [id number] [place] [id number] Nov, [facility] [address] [id number] [place] [id number] Oct, [facility] [address] [id number] [place] [address]1177[address]45 Oct, [facility] [address] [id number] [place] [id number] Oct, [facility] [address] [facility] [id number] [place] [address] Oct, [facility] [address] [facility] [id number] [place] [address] Oct, [facility] [address] [facility] [id number] [address] Sep, [facility] [address] [facility] [id number] [place] [id number] Aug, [facility] [address] [id number] [place] [id number] Aug, [facility] [address] [facility] [id number] [place] 6[address] Aug, [facility] [address] [facility] [id number] [place] [address] 15 Aug, 2011 [facility] [address]65100[place] [address] 14 Aug, 2011 [facility] [id number] [place] [address] 13 Aug, 2011 [facility] [address] [facility] [id number] [place] [id number] 12 Aug, 2011 [facility] [address]00565100[place] [address] Jul, [facility] [place] [facility] [address]00565100[place] [address] 08 Jul, 2011 [facility] [place] [facility] [address]65100[place] [address] 10 Sep, 2010 [facility] [place] [facility] [address] [facility] [id number] [place] [address] Aug, [facility] [place] [facility] [address] [id number] [place] [address] Jul, [facility] [place] [facility] [address] [facility] [id number] [place] [address] Jun, [facility] [place] [facility] [address]65100[place] [address] Jul, [facility] [address] [facility] [id number] [place] [address] Jul, [facility] [address] [facility] [id number] [place] [address] Jul, IMMUNIZATIONS No Known Immunizations SOCIAL HISTORY Never Assessed REASON FOR VISIT E[facility] PLAN OF CARE VITAL SIGNS MEDICATIONS No Known Medications RESULTS No Results PROCEDURES No Known procedures INSTRUCTIONS MEDICATIONS ADMINISTERED No Known Medications MEDICAL (GENERAL) HISTORY Type Description Date Surgical History section 2011 Surgical History cell removal, cervix 12/2017
--- OUTSIDE RECORDS SUMMARY | 2019-01-26 17:54 | XMS REPORT ---
Author Author Migration, Doctor Organization [facility] Address Unknown Phone Unavailable Care Team Providers Care Research Neuropsychologist Name Role Phone Migration, Doctor Unavailable Unavailable PROBLEMS No Known Problems ALLERGIES No Information ENCOUNTERS Encounter Location Date Diagnosis [facility] [id number] [place] [address] Aug, Acute tonsillitis, unspecified etiology J03.90 [facility] [address] [address] Oct, [facility] [id number] [place] [address] Sep, Well woman exam Z01.419 ; Possible exposure to STD Z20.2 and control counseling Z30.[address] [id number] Nov, Encounter for surveillance of contraceptive pills Z30.[address] [id number] May, [address] [id number] May, Bleeding of cervix N88.8 ; Well woman exam Z01.419 and Encounter for surveillance of contraceptive pills Z30.41 [id number] [place] [address] [id number] Nov, [id number] [place] [id number] Oct, [address] [id number] Sep, [address] [id number] Mar, [address] [id number] Mar, [address] [id number] [place] [address] Mar, Missed period 626.4 and Screening for STD (sexually transmitted disease) V74.5 [facility] [address]00565100[place], [place] [address] Nov, [facility] [place] [facility] [address]00565100[place], [place] [address] Nov, [facility] [place] [facility] [address]65[address], [place] [address] Aug, [facility] [id number] [place] [address] Aug, [facility] [address]100[place], [place] [address] Aug, [facility] [id number] [place] [address] Aug, [facility] [address]00565100[place], [place] [address] Aug, [facility] [id number] [place] [id number] Jul, [facility] [address]00565100[place], [place] [address] Jul, [facility] [address] [id number] [place] [address] Jun, [facility] [address] [id number], [place] [address] Jun, [facility] [address] [id number] [place] [address] Jun, [facility] [place] [facility] [address], [place] [address] Jun, [facility] [address] [id number] [place] [address] Jul, [facility] [place] [facility] [address], [place] [address] Jul, [facility] [place] [facility] [address] [id number], [place] [address] Jun, [facility] [address] [id number] [place] [id number] Jun, [facility] [place] [facility] [address] [id number] [place] [address] Jun, [facility] [place] [facility] [address] [id number] [place] [address] Jun, [facility] [address] [id number] [place] [id number] Mar, [facility] [address] [id number] [place] 107[address] Oct, [facility] [address] [id number] [place] [id number] Jun, [facility] [address] [id number] [place] [address] Jun, [facility] [place] [facility] [address] [facility] [id number], [place] [address] Jun, [facility] [place] [facility] [address] [facility] [id number], [place] [address] Jun, [facility] [place] [facility] [address] [facility] [id number], [place] [address] Jun, [facility] [place] [facility] [address] [facility] [id number], [place] [address] Jun, [facility] [address] [id number] [place] 490[address] Jun, [facility] [place] [facility] [address] [id number], [place] [address] Jun, [facility] [address] [id number] [place] [address]33[address] Jun, [facility] [place] [facility] [address] [id number], [place] [address] Jun, [facility] [address] [id number] [place] 864159153 Feb, [facility] [address] [id number] [place] 744[address]16[address] Feb, [facility] [address] [facility] [id number], [place] [address] Feb, [facility] [address] [id number] [place] [id number] Feb, [facility] [address] [id number] [place] [id number] Feb, [facility] [address] [id number] [place] 945754764 Jan, [facility] [place] [facility] [address] [facility] [id number], [place] [address] Jan, [facility] [place] [facility] [address] [facility] [id number], [place] [address] Jan, [facility] [address] [id number] [place] 065261678 Jan, [facility] [address]00565100[place], [place] [address] Jan, [facility] [address] [id number] [place] [id number] December, [facility] [address] [id number] [place] 410[address]69[address] December, [facility] [address] [id number] [place] 800[address] December, [facility] [address] [facility] [id number], [place] [address] December, [facility] [address] [id number] [place] 3017[address] Nov, [facility] [address] [id number] [place] 20559[address] Oct, [facility] [address] [id number] [place] 743560659 Oct, [facility] [address] [id number] [place] 0575[address]83 Oct, [facility] [address] [facility] [id number], [place] [address] Oct, [facility] [address] [facility] [id number], [place] [address] Oct, [facility] [address] [facility] [id number], [place] [address] Sep, [facility] [address] [facility] [id number] [place] 758[address]52[address] Aug, [facility] [address] [id number] [place] 808683082 Aug, [facility] [address] [facility] [id number] [place] 069541588 Aug, [facility] [address] [facility] [id number] [place] [address] 15 Aug, 2011 [facility] [address]00565100[place], [place] [address] 14 Aug, 2011 [facility] [id number] [place] [address] 13 Aug, 2011 [facility] [address] [facility] [id number] [place] [id number] 12 Aug, 2011 [facility] [address]00565100[place], [place] [address] Jul, [facility] [place] [facility] [address]005[address]100[place], [place] [address] 08 Jul, 2011 [facility] [place] [facility] [address]00565[address], [place] [address] 10 Sep, 2010 [facility] [place] [facility] [address] [facility] [id number], [place] [address] Aug, [facility] [place] [facility] [address] [id number] [place] [address] Jul, [facility] [place] [facility] [address] [facility] [id number], [place] [address] Jun, [facility] [place] [facility] [address]00565100[place], [place] [address] Jul, [facility] [address] [facility] [id number] [place] [address] Jul, [facility] [address] [facility] [id number] [place] [address] Jul, IMMUNIZATIONS No Known Immunizations SOCIAL HISTORY Never Assessed REASON FOR VISIT EMR-[facility] PLAN OF CARE VITAL SIGNS MEDICATIONS No Known Medications RESULTS No Results PROCEDURES No Known procedures INSTRUCTIONS MEDICATIONS ADMINISTERED No Known Medications MEDICAL (GENERAL) HISTORY Type Description Date Surgical History section 2011 Surgical History cell removal, cervix 12/2017
--- OUTSIDE RECORDS SUMMARY | 2019-01-26 17:54 | XMS REPORT ---
Author Author Migration, Doctor Organization [facility] Address Unknown Phone Unavailable Care Team Providers Care Television Maintenance Worker Name Role Phone Migration, Doctor Unavailable Unavailable PROBLEMS No Known Problems ALLERGIES No Information ENCOUNTERS Encounter Location Date Diagnosis [facility] [id number] [place] [address] Aug, Acute tonsillitis, unspecified etiology J03.90 [facility] [address] [address] Oct, [facility] [id number] [place] [address] Sep, Well woman exam Z01.419 ; Possible exposure to STD Z20.2 and control counseling Z30.[address] [id number] Nov, Encounter for surveillance of contraceptive pills Z30.[address] [id number] May, [address] [id number] May, Bleeding of cervix N88.8 ; Well woman exam Z01.419 and Encounter for surveillance of contraceptive pills Z30.41 [id number] [place] [address] [id number] Nov, [id number] [place] [id number] Oct, [address] [id number] Sep, [address] [id number] Mar, [address] [id number] Mar, [address] [id number], [place] [address]88[address]07 Mar, Missed period 626.4 and Screening for STD (sexually transmitted disease) V74.5 [facility] [address]00565100[place], [place] [address] Nov, [facility] [place] [facility] [address]00565100[place], [place] [address] Nov, [facility] [place] [facility] [address]00565100[place], [place] [address] Aug, [facility] [id number], [place] [id number] Aug, [facility] [address]00565100[place], [place] [address] Aug, [facility] [id number], [place] 72[address] Aug, [facility] [address]00565100[place], [place] [address] Aug, [facility] [id number], [place] [id number] Jul, [facility] [address]00565100[place], [place] [address] Jul, [facility] [address] [id number], [place] [address]40 Jun, [facility] [address] [id number], [place] [address] Jun, [facility] [address] [id number], [place] [id number] Jun, [facility] [place] [facility] [address]00565100[place], [place] [address] Jun, [facility] [address] [id number], [place] [address]36[address]776 Jul, [facility] [place] [facility] [address]00565100[place], [place] [address] Jul, [facility] [place] [facility] [address] [id number], [place] [address] Jun, [facility] [address] [id number] [place] 6[address] Jun, [facility] [place] [facility] [address] [id number] [place] [address] Jun, [facility] [place] [facility] [address] [id number] [place] [address] Jun, [facility] [address] [id number] [place] [id number] Mar, [facility] [address] [id number] [place] [id number] Oct, [facility] [address] [id number] [place] [address]43[address] Jun, [facility] [address] [id number] [place] [id number] Jun, [facility] [place] [facility] [address] [facility] [id number], [place] [address] Jun, [facility] [place] [facility] [address] [facility] [id number], [place] [address] Jun, [facility] [place] [facility] [address] [facility] [id number], [place] [address] Jun, [facility] [place] [facility] [address] [facility] [id number], [place] [address] Jun, [facility] [address] [id number], [place] [id number] Jun, [facility] [place] [address] [id number], [place] [address] Jun, [facility] [address] [id number] [place] [id number] Jun, [facility] [address] [id number], [place] [address] Jun, [facility] [address] [id number][place] [id number] Feb, [facility] [address] [id number] [place] [id number] Feb, [facility] [address] [facility] [id number], [place] [address] Feb, [facility] [address] [id number] [place] [id number] Feb, [facility] [address] [id number] [place] [id number] Feb, [facility] [address] [id number] [place] [id number] Jan, [facility] [address] [facility] [id number], [place] [address] Jan, [facility] [address] [facility] [id number], [place] [address] Jan, [facility] [address] [id number] [place] [id number] Jan, [facility] [id number], [place] [address] Jan, [facility] [address] [id number] [place] [id number] December, [facility] [address] [id number] [place] [id number] December, [facility] [address] [id number] [place] [id number] December, [facility] [address] [facility] [id number], [place] [address] December, [facility] [address] [id number] [place] [id number] Nov, [facility] [address] [id number] [place] [id number] Oct, [facility] [address] [id number] [place] [id number] Oct, [facility] [address] [id number] [place] [id number] Oct, [facility] [address] [facility] [id number], [place] [address] Oct, [facility] [address] [facility] [id number], [place] [address] Oct, [facility] [address] [facility] [id number], [place] [address] Sep, [facility] [address] [facility] [id number] [place] [id number] Aug, [facility] [address] [id number] [place] [id number] Aug, [facility] [address] [facility] [id number] [place] [id number] Aug, [facility] [address] [facility] [id number] [place] [address] 15 Aug, 2011 [facility] [id number], [place] [address] 14 Aug, 2011 [facility] [id number] [place] [id number] 13 Aug, 2011 [facility] [address] [facility] [id number] [place] [id number] 12 Aug, 2011 [facility] [id number], [place] [address] Jul, [facility] [id number], [place] [address] 08 Jul, 2011 [facility] [id number], [place] [address] 10 Sep, 2010 [facility] [address] [facility] [id number], [place] [address] Aug, [facility] [id number] [place] [address] Jul, [facility] [address] [facility] [id number], [place] [address] Jun, [facility] [id number], [place] [address] Jul, [facility] [address] [facility] [id number] [place] [address] Jul, [facility] [address] [facility] [id number] [place] [address] Jul, IMMUNIZATIONS No Known Immunizations SOCIAL HISTORY Never Assessed REASON [place] VISIT [place] [place] VITAL SIGNS MEDICATIONS No Known Medications RESULTS No Results PROCEDURES No Known procedures INSTRUCTIONS MEDICATIONS ADMINISTERED No Known Medications MEDICAL (GENERAL) HISTORY Type Description Date Surgical History section 2011 Surgical History cell removal, cervix 12/2017
--- OUTSIDE RECORDS SUMMARY | 2019-01-26 17:55 | XMS REPORT ---
Author Author DELORIS ESEQUIEL Organization [facility] Address [address] [place] [address] Care Team Providers Care Tricot Knitter Name Role Phone DELORISKWABENA RICHARDY Unavailable PROBLEMS Type Condition ICD9-CM Code YKP78-FG Code Onset Dates Condition Status SNOMED Code Problem Bleeding of cervix N88.8 Active 41104580 ALLERGIES No Known Allergies ENCOUNTERS Encounter Location Date Diagnosis [facility] [address] [address] Oct, [facility] [address] [address] Sep, Well woman exam Z01.419 ; Possible exposure to STD Z20.2 and control counseling Z30.[address] [id number] Nov, Encounter for surveillance of contraceptive pills Z30.[address] [id number] May, [address] [id number] May, Bleeding of cervix N88.8 ; Well woman exam Z01.419 and Encounter for surveillance of contraceptive pills Z30.41 [facility] [id number] [place] [address] [id number] Nov, [address] [id number] Oct, [address] [id number] Sep, [address] [id number] Mar, [address] [id number] Mar, [facility] [address] [facility] [id number] [id number] Mar, Missed period 626.4 and Screening for STD (sexually transmitted disease) V74.5 [facility] [address] [id number] [address] Nov, [facility] [address]00565[address], [place] [address] Nov, [facility] [address] [id number], [place] [address] Aug, [facility] [address] [id number][place] [id number] Aug, [facility] [address]00565[address], [place] [address] Aug, [facility] [id number][place] [id number] Aug, [facility] [address]00565[address], [place] [address] Aug, [facility] [address] [id number][place] [id number] Jul, [facility] [address]00565100[place], [place] [address] Jul, [facility] [address] [id number][place] [address] Jun, [facility] [address] [id number], [place] [address] Jun, [facility] [address] [facility] [id number][place] [id number] Jun, [facility] [address]65100[place], [place] [address] Jun, [facility] [address] [facility] [id number][place] [id number] Jul, [facility] [address]00565100[place], [place] [address] Jul, [facility] [place] [facility] [address] [id number] [place] [address] Jun, [facility] [address] [id number] [place] [id number] Jun, [facility] [place] [facility] [address] [id number] [place] [address] Jun, [facility] [place] [facility] [address] [id number] [place] [address] Jun, [facility] [address] [id number] [place] [id number] Mar, [facility] [address] [id number] [place] [id number] Oct, [facility] [address] [id number] [place] [address] Jun, [facility] [address] [id number][place] [address] Jun, [facility] [place] [facility] [address] [id number], [place] [address] Jun, [facility] [place] [facility] [address] [facility] [id number], [place] [address] Jun, [facility] [place] [facility] [address] [id number], [place] [address] Jun, [facility] [place] [facility] [address] [facility] [id number], [place] [address] Jun, [facility] [address] [id number], [place] [address] Jun, [facility] [place] [facility] [address] [facility] [id number], [place] [address] Jun, [facility] [address] [id number], [place] [id number] Jun, [facility] [place] [facility] [address] [facility] [id number], [place] [address] Jun, [facility] [address] [id number] [place] [address] Feb, [facility] [address] [id number] [place] [address] Feb, [facility] [place] [facility] [address] [facility] [id number] [place] [address] Feb, [facility] [address] [id number] [place] [address] Feb, [facility] [address] [id number] [place] [address] Feb, [facility] [address] [id number] [place] [id number] Jan, [facility] [place] [facility] [address] [facility] [id number] [place] [address] Jan, [facility] [place] [facility] [address] [id number], [place] [address] Jan, [facility] [address] [id number] [place] [address] Jan, [facility] [place] [facility] [address] [facility] [id number], [place] [address] Jan, [facility] [address] [id number] [place] [address] December, [facility] [address] [id number] [place] [address] December, [facility] [address] [id number] [place] [id number] December, [facility] [place] [facility] [address] [facility] [id number], [place] [address] December, [facility] [address] [id number] [place] [address] Nov, [facility] [address] [id number] [place] [address] Oct, [facility] [address] [id number] [place] 3755[address] Oct, [facility] [address] [id number] [place] [address] Oct, [facility] [place] [facility] [address] [facility] [id number], [place] [address] Oct, [facility] [address] [facility] [id number], [place] [address] Oct, [facility] [place] [facility] [address] [facility] [id number], [place] [address] Sep, [facility] [address] [facility] [id number], [place] [id number] Aug, [facility] [address] [facility] [id number], [place] [address] Aug, [facility] [address] [facility] [id number], [place] [id number] 24 Aug, 2011 [facility] [place] [facility] [address] [facility] [id number], [place] [address] 15 Aug, 2011 [facility] [place] [facility] [address]65[address], [place] [address] 14 Aug, 2011 [facility] [address] [id number], [place] [address] 13 Aug, 2011 [facility] [address] [id number] [id number] 12 Aug, 2011 [facility] [place] [facility] [address]65[address], [place] [address] Jul, [facility] [place] [facility] [address]00565100[place], [place] [address] Jul, [facility] [place] [facility] [address] [facility] [id number], [place] [address] Sep, [facility] [place] [facility] [address] [facility] [id number], [place] [address] Aug, [facility] [place] [facility] [address] [facility] [id number], [place] [address] Jul, [facility] [place] [facility] [address] [facility] [id number], [place] [address] Jun, [facility] [place] [facility] [address] [facility] [id number], [place] [address] Jul, [facility] [address] [facility] [id number], [place] [address] Jul, [facility] [address] [facility] [id number], [place] [address] Jul, IMMUNIZATIONS No Known Immunizations SOCIAL HISTORY Never Assessed REASON FOR VISIT Well Woman Exam--tcuppettRN PLAN OF CARE Activity Details Follow Up 1 Year Reason:Well woman Pending Test PAP REFLEX TO HPV IF ASCUS VITAL SIGNS Height 70.5 in 2017-10-11 Weight 156.3 lbs 2017-10-11 Temperature 98.1 degrees Fahrenheit 2017-10-11 Heart Rate 76 bpm 2017-10-11 Respiratory Rate 18 2017-10-11 BMI 22.11 kg/m2 2017-10-11 Blood pressure systolic 112 mmHg 2017-10-11 Blood pressure diastolic 70 mmHg 2017-10-11 MEDICATIONS Medication Instructions Dosage Frequency Start Date End Date Duration Status Loestrin 09/11 1-20 MG-MCG Orally Once a day 1 tablet 24h Sep, 28 days Active RESULTS No Results PROCEDURES Procedure Date Ordered Result Body Site SPECIMEN HANDLING Oct 11, 2017 No Charge Oct 11, 2017 VENIPUNCT, ROUTINE* Oct 11, 2017 CULTURE, BACTERIA, OTHER Oct 11, 2017 TRICHOMONAS ASSAY W/OPTIC Oct 11, 2017 URINE TEST Oct 11, 2017 Bacterial Vaginosis In House Oct 11, 2017 INSTRUCTIONS MEDICATIONS ADMINISTERED No Known Medications MEDICAL (GENERAL) HISTORY Type Description Date Surgical History section 2011
--- OUTSIDE RECORDS SUMMARY | 2019-01-26 17:55 | XMS REPORT ---
Author Author DELORIS ESEQUIEL Organization [facility] Address [address] [place] [address] Care Team Providers Care Finger Buff Sewer Name Role Phone KWABENA PUENTESY Unavailable PROBLEMS Type Condition ICD9-CM Code LIM85-PP Code Onset Dates Condition Status SNOMED Code Problem Bleeding of cervix N88.8 Active [id number] ALLERGIES No Information ENCOUNTERS Encounter Location Date Diagnosis [facility] [id number] [place] [address] Oct, [facility] [address] [address] Sep, Well woman exam Z01.419 ; Possible exposure to STD Z20.2 and control counseling Z30.[address] [id number] Nov, Encounter for surveillance of contraceptive pills Z30.[address] [id number] May, [address] [id number] May, Bleeding of cervix N88.8 ; Well woman exam Z01.419 and Encounter for surveillance of contraceptive pills Z30.41 [facility] [id number] [place] [id number] Nov, [address] [id number] Oct, [address] [id number] Sep, [facility] [address] [id number] Mar, [address] [id number] Mar, [facility] [address] [facility] [id number] [place] [address] Mar, Missed period 626.4 and Screening for STD (sexually transmitted disease) V74.5 [facility] [address] [facility] [id number], [place] [address] Nov, [facility] [address]00565100[place], [place] [address] Nov, [facility] [place] [facility] [address] [facility] [id number], [place] [address] Aug, [facility] [id number] [place] [address] Aug, [facility] [address]00565100[place], [place] [address] Aug, [facility] [id number] [place] [address] Aug, [facility] [address]00565100[place], [place] [address] Aug, [facility] [address] [id number] [place] [address] Jul, [facility] [address]00565100[place], [place] [address] Jul, [facility] [address] [id number] [place] [address] Jun, [facility] [address] [id number], [place] [address] Jun, [facility] [address] [facility] [id number] [place] [address] Jun, [facility] [address]00565100[place], [place] [address] Jun, [facility] [address] [facility] [id number] [place] [address] Jul, [facility] [address]00565100[place], [place] [address] Jul, [facility] [place] [facility] [address] [id number], [place] [address] Jun, [facility] [address] [id number] [place] [address] Jun, [facility] [place] [facility] [address] [id number] [place] [address] Jun, [facility] [place] [facility] [address] [id number] [place] [address] Jun, [facility] [address] [id number] [place] [id number] Mar, [facility] [address] [id number] [place] [id number] Oct, [facility] [address] [id number] [place] [address] Jun, [facility] [address] [id number] [place] [address]1840[address]47 Jun, [facility] [place] [facility] [address] [id number], [place] [address] Jun, [facility] [place] [facility] [address] [facility] [id number], [place] [address] Jun, [facility] [place] [facility] [address] [facility] [id number], [place] [address] Jun, [facility] [place] [facility] [address] [facility] [id number], [place] [address] Jun, [facility] [address] [id number] [place] [id number] Jun, [facility] [place] [facility] [address] [facility] [id number], [place] [address] Jun, [facility] [address] [id number] [place] [address] Jun, [facility] [place] [facility] [address] [facility] [id number], [place] [address] Jun, [facility] [address] [id number] [place] [id number] Feb, [facility] [address] [id number] [place] [address]44[address] Feb, [facility] [place] [facility] [address] [facility] [id number], [place] [address] Feb, [facility] [address] [id number] [place] [address] Feb, [facility] [address] [id number] [place] 39[address] Feb, [facility] [address] [id number] [place] 92[address] Jan, [facility] [place] [facility] [address] [facility] [id number] [place] [address] Jan, [facility] [place] [facility] [address] [id number], [place] [address] Jan, [facility] [address] [id number] [place] [address] Jan, [facility] [place] [facility] [address] [facility] [id number], [place] [address] Jan, [facility] [address] [id number] [place] 9875[address] December, [facility] [address] [id number] [place] [address] December, [facility] [address] [id number] [place] [address] December, [facility] [place] [facility] [address] [facility] [id number], [place] [address] December, [facility] [address] [id number] [place] [id number] Nov, [facility] [address] [id number] [place] [address] Oct, [facility] [address] [id number] [place] [address] Oct, [facility] [address] [id number] [place] 8[address] Oct, [facility] [place] [facility] [address] [id number], [place] [address] Oct, [facility] [address] [facility] [id number], [place] [address] Oct, [facility] [place] [facility] [address] [facility] [id number], [place] [address] Sep, [facility] [address] [facility] [id number] [place] [id number] Aug, [facility] [address] [facility] [id number] [place] [address] Aug, [facility] [address] [facility] [id number] [place] [address] Aug, [facility] [place] [facility] [address] [facility] [id number], [place] [address] 15 Aug, 2011 [facility] [address] [facility] [id number], [place] [address] 14 Aug, 2011 [facility] [address] [id number] [place] [address] 13 Aug, 2011 [facility] [address] [id number] [place] [address] Aug, [facility] [address]00565100[place], [place] [address] Jul, [facility] [place] [facility] [address] [id number], [place] [address] Jul, [facility] [place] [facility] [address] [facility] [id number], [place] [address] Sep, [facility] [place] [facility] [address] [facility] [id number], [place] [address] Aug, [facility] [place] [facility] [address] [facility] [id number], [place] [address] Jul, [facility] [place] [facility] [address] [facility] [id number], [place] [address] Jun, [facility] [place] [facility] [address] [facility] [id number], [place] [address] Jul, [facility] [address] [facility] [id number] [place] [address] Jul, [facility] [address] [facility] [id number], [place] [address] Jul, IMMUNIZATIONS No Known Immunizations SOCIAL HISTORY Never Assessed REASON FOR VISIT Follow-up call PLAN OF CARE VITAL SIGNS MEDICATIONS Unknown Medications RESULTS No Results PROCEDURES No Known procedures INSTRUCTIONS MEDICATIONS ADMINISTERED No Known Medications MEDICAL (GENERAL) HISTORY Type Description Date Surgical History section 2011
--- OUTSIDE RECORDS SUMMARY | 2019-01-26 17:55 | XMS REPORT ---
Author Author Migration, Doctor Organization [facility] Address Unknown Phone Unavailable Care Team Providers Care Oracle Database Architect Name Role Phone Migration, Doctor Unavailable Unavailable PROBLEMS No Known Problems ALLERGIES No Information ENCOUNTERS Encounter Location Date Diagnosis [facility] [id number] [place] [address] Aug, Acute tonsillitis, unspecified etiology J03.90 [facility] [address] [address] Oct, [facility] [id number] [place] [address] Sep, Well woman exam Z01.419 ; Possible exposure to STD Z20.2 and control counseling Z30.[address] [id number] Nov, Encounter for surveillance of contraceptive pills Z30.[address] [id number] May, [address] [id number] May, Bleeding of cervix N88.8 ; Well woman exam Z01.419 and Encounter for surveillance of contraceptive pills Z30.41 [id number] [place] [id number] Nov, [id number] [place] [id number] Oct, [address] [id number] Sep, [address] [id number] Mar, [address] [id number] Mar, [address] [id number] [place] [id number] Mar, Missed period 626.4 and Screening for STD (sexually transmitted disease) V74.5 [facility] [address] [address] Nov, [facility] [place] [facility] [address]100[place] [address] Nov, [facility] [place] [facility] [address] [address] Aug, [facility] [id number] [place] [id number] Aug, [facility] [address] [address] Aug, [facility] [id number] [place] [id number] Aug, [facility] [address] [address] Aug, [facility] [id number] [place] [id number] Jul, [facility] [address] [address] Jul, [facility] [address] [id number] [place] [id number] Jun, [facility] [address] [id number] [address] Jun, [facility] [address] [id number] [place] [id number] Jun, [facility] [place] [address] [address] Jun, [facility] [address] [id number] [place] [id number] Jul, [facility] [place] [address] [address] Jul, [facility] [place] [address] [id number] [place] [address] Jun, [facility] [address] [id number] [place] [id number] Jun, [facility] [place] [facility] [address] [id number] [place] [address] Jun, [facility] [place] [facility] [address] [id number] [place] [address] Jun, [facility] [address] [id number] [place] [id number] Mar, [facility] [address] [id number] [place] [id number] Oct, [facility] [address] [id number] [place] [id number] Jun, [facility] [address] [id number] [place] [id number] Jun, [facility] [place] [facility] [address] [facility] [id number] [place] [address] Jun, [facility] [place] [facility] [address] [facility] [id number] [place] [address] Jun, [facility] [place] [address] [facility] [id number] [place] [address] Jun, [facility] [place] [facility] [address] [facility] [id number] [place] [address] Jun, [facility] [address] [id number] [place] [id number] Jun, [facility] [address] [id number] [place] [address] Jun, [facility] [address] [id number] [place] [id number] Jun, [facility] [place] [facility] [address] [id number] [address] Jun, [facility] [address] [id number] [place] [id number] Feb, [facility] [address] [id number] [place] [id number] Feb, [facility] [address] [facility] [id number] [place] [address] Feb, [facility] [address] [id number] [place] [id number] Feb, [facility] [address] [id number] [place] [id number] Feb, [facility] [address] [id number] [place] [id number] Jan, [facility] [address] [facility] [id number] [place] [address] Jan, [facility] [address] [facility] [id number] [place] [address] Jan, [facility] [address] [id number] [place] [id number] Jan, [facility] [address]100[place] [address] Jan, [facility] [address] [id number] [place] [id number] December, [facility] [address] [id number] [place] [id number] December, [facility] [address] [id number] [place] [id number] December, [facility] [address] [facility] [id number] [place] [address] December, [facility] [address] [id number] [place] [id number] Nov, [facility] [address] [id number] [place] [id number] Oct, [facility] [address] [id number] [place] [id number] Oct, [facility] [address] [id number] [place] [id number] Oct, [facility] [address] [facility] [id number] [place] [address] Oct, [facility] [address] [facility] [id number] [place] [address] Oct, [facility] [address] [facility] [id number] [place] [address] Sep, [facility] [address] [facility] [id number] [place] [id number] Aug, [facility] [address] [id number] [place] [id number] Aug, [facility] [address] [facility] [id number] [place] [id number] Aug, [facility] [address] [facility] [id number] [place] [address] 15 Aug, 2011 [facility] [address] [address] 14 Aug, 2011 [facility] [id number] [place] [id number] 13 Aug, 2011 [facility] [address] [facility] [id number] [place] [id number] 12 Aug, 2011 [facility] [id number] [address] Jul, [facility] [place] [facility] [id number] [address] 08 Jul, 2011 [facility] [place] [facility] [address] [address] 10 Sep, 2010 [facility] [place] [facility] [address] [facility] [id number] [place] [address] Aug, [facility] [place] [facility] [id number] [address] Jul, [facility] [place] [facility] [address] [facility] [id number] [place] [address] Jun, [facility] [address] [address] Jul, [facility] [address] [facility] [id number] [place] [address] Jul, [facility] [address] [facility] [id number] [place] [address] Jul, IMMUNIZATIONS No Known Immunizations SOCIAL HISTORY Never Assessed REASON FOR VISIT EMR-[facility] PLAN OF CARE VITAL SIGNS MEDICATIONS No Known Medications RESULTS No Results PROCEDURES No Known procedures INSTRUCTIONS MEDICATIONS ADMINISTERED No Known Medications MEDICAL (GENERAL) HISTORY Type Description Date Surgical History section 2011 Surgical History cell removal, cervix 12/2017
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
== END 2019-01-26 17:46 | disposition home or self-care (01) ==
LOC: EDUNIT# 17:32 → ER 17:33
DX: S81.812D Laceration without foreign body, left lower leg, subsequent encounter (principal); W26.8XXD Contact with other sharp object(s), not elsewhere classified, subsequent encounter

== ENCOUNTER 2019-09-18 18:39 | Emergency (ER) | payer MEDICAID ==
[~2019-09-18] VITALS: Ht 177 cm; Wt 80.0 kg
[2019-09-18 20:49] LABS: BILIRUBIN,URINE NEGATIVE (NEGATIVE); COLOR,URINE YELLOW; GLUCOSE, URINE (UA) NEGATIVE (NEGATIVE); KETONES,URINE 3+ (NEGATIVE); LEUKOCYTE ESTERASE ,URINE TRACE (NEGATIVE); NITRITE,URINE NEGATIVE (NEGATIVE); PH,URINE 7.5 (5-9); PROTEIN,URINE NEGATIVE (NEGATIVE)
[2019-09-18 20:58] LABS: BACTERIA,URINE MODERATE /HPF; CLARITY,URINE SL CLOUDY
[2019-09-18] MEDS ORDERED: OSLT75C PO (21:08)
[2019-09-18] MEDS ORDERED: RX-ONDANSETRON 4 MG ODT (ZOFRAN) PPK #4 PO STA (21:09)
--- NOTE | 2019-09-18 21:09 | ED General ---
General Chief Complaint: General Problems/Pain Stated Complaint: FEVER/BODY ACHES/14 WKS PREG Nursing Triage Note: Pt to RM 9 with c/o fever, body aches and general weakness x 3 days. Pt states she was seen in [facility] for symptoms and they did not do any tests or give meds. Pt states she is 14 wks preg. temp 99.9 on arrival. Nursing Sepsis Screen: No Definite Risk Source of Information: Patient Exam Limitations: No Limitations History of Present Illness Date Seen by Provider: Sep 18, 2019 Time Seen by Provider: 21:06 Initial Comments To ER with fever body aches general weakness since yesterday. 14 weeks gestation. Scheduled to see Dr. SUMMERS in 2 days. Timing/Duration: 1-2 Days Severity: Moderate Allergies and Home Medications Allergies Coded Allergies: No Known Drug Allergies (Unverified , 12/14/17) Home Medications No Active Prescriptions or Reported Meds Patient Home Medication List Home Medication List Reviewed: Yes Review of Systems Review of Systems Constitutional: see HPI, fever, malaise, weakness EENTM: see HPI Respiratory: no symptoms reported Cardiovascular: no symptoms reported Genitourinary: no symptoms reported Musculoskeletal: no symptoms reported Skin: no symptoms reported Psychiatric/Neurological: No Symptoms Reported Past Nyasvxj-Gpwnyf-Intbwe Hx Patient Social History Alcohol Use: Denies Use Recreational Drug Use: No Smoking Status: Never a Smoker 2nd Hand Smoke Exposure: Yes Recent Foreign Travel: No Contact w/Someone Who Travel: No Recent Infectious Disease Expo: No Recent Hopitalizations: No Physical Abuse: No Sexual Abuse: No Mistreated: No Fear: No Immunizations Up To Date Tetanus Booster (TDap): Unknown PED Vaccines UTD: Yes Seasonal Allergies Seasonal Allergies: No Past Medical History Surgeries: Yes Section Respiratory: No Cardiac: No Neurological: No Reproductive Disorders: Yes Genitourinary: No Gastrointestinal: No Musculoskeletal: No Endocrine: No HEENT: No Cancer: No Psychosocial: No Integumentary: No Blood Disorders: No Family Medical History No Pertinent Family Hx Physical Exam Vital Signs Vital Signs - First Documented 09/18/19 20:30 Temp 37.9 Pulse 98 Resp 20 B/P (MAP) 109/66 (80) Pulse Ox 100 O2 Delivery Room Air Capillary Refill : Less Than 3 Seconds Height, Weight, BMI Height: 5'10.00" Weight: 150lbs. 0.0oz. 68.569853eg; 25.00 BMI Method:Stated General Appearance: No Apparent Distress, WD/WN Eyes: Bilateral Eye Normal Inspection, Bilateral Eye PERRL, Bilateral Eye EOMI HEENT: PERRL/EOMI Neck: Full Range of Motion, Normal Inspection Respiratory: No Accessory Muscle Use, No Respiratory Distress Gastrointestinal: Normal Bowel Sounds, Non Tender, Soft Extremity: Normal Capillary Refill, Normal Inspection Neurologic/Psychiatric: Alert, Oriented x3 Skin: Normal Color, Warm/Dry Procedures/Interventions Suture Size: 4-0 Progress/Results/Core Measures Suspected Sepsis Recent Fever Within 48 Hours: Yes Infection Criteria Present: None New/Unexplained Altered Menta: No Sepsis Screen: No Definite Risk SIRS Temperature: Pulse: 98 Respiratory Rate: 20 Blood Pressure 109 /66 Mean: 80 Results/Orders Lab Results Laboratory Tests Test 09/18/19 20:42 Range/Units Urine Color YELLOW Urine Clarity SL CLOUDY Urine pH 7.5 5-9 Urine Specific [place] 1.025 H 1.016-1.022 Urine Protein NEGATIVE NEGATIVE Urine Glucose (UA) NEGATIVE NEGATIVE Urine Ketones 3+ H NEGATIVE Urine Nitrite NEGATIVE NEGATIVE Urine Bilirubin NEGATIVE NEGATIVE Urine Urobilinogen 0.2 < = 1.0 MG/DL Urine Leukocyte Esterase TRACE NEGATIVE Urine RBC (Auto) NEGATIVE NEGATIVE Urine RBC NONE /HPF Urine WBC 2-5 /HPF Urine Squamous Epithelial Cells 5-10 /HPF Urine Crystals NONE /LPF Urine Bacteria MODERATE H /HPF Urine Casts NONE /LPF Urine Mucus SMALL H /LPF Urine Culture Indicated YES Micro Results Microbiology 09/18/19 Influenza Types A,B Antigen (MURIEL) - Final, Complete Vital Signs/I&O 09/18/19 20:30 Temp 37.9 Pulse 98 Resp 20 B/P (MAP) 109/66 (80) Pulse Ox 100 O2 Delivery Room Air Capillary Refill : Less Than 3 Seconds Blood Pressure Mean: 80 Departure Impression Primary Impression: Influenza A Disposition: 01 HOME, SELF-CARE Condition: Stable Departure-Patient Inst. Decision time for Depature: 21:07 Referrals: CHUCK SUMMERS DO (PCP) Primary Care Physician [facility] (Family) Primary Care Physician Patient Instructions: Flu, Adult (DC) Add. Discharge Instructions: 1. Tylenol for fever control 2. Tamiflu as directed for the flu and Zofran for nausea. Call Dr. SUMMERS's office prior to going to the appointment on Wednesday, he may not want you to bring this to the clinic. They may wish to reschedule your appointment. All discharge instructions reviewed with patient and/or family. Voiced understanding. Scripts Oseltamivir Phosphate (Tamiflu) 75 Mg Cap 75 MG PO BID, #10 CAP Prov: MG CARR APRN 09/18/19 Work/School Note: Work Release Form Date Seen in the Emergency Department: Sep 18, 2019 Return to Work: Sep 24, 2019 Copy Copies To 1: CHUCK SUMMERS PETER J APRN Sep 18, 2019 21:09
[2019-09-18] MEDS ORDERED: OSELTAMIVIR 75 MG (TAMIFLU) CAPSULE PO ONE (21:15)
[2019-09-18 21:17] VITALS: BP 112/72
== END 2019-09-18 21:24 | disposition home or self-care (01) ==
LOC: EDUNIT# 18:39 → ER 18:41
DX: O99.512 Diseases of the respiratory system complicating pregnancy, second trimester (principal); J10.1 Influenza due to other identified influenza virus with other respiratory manifestations; Z3A.14 14 weeks gestation of pregnancy; Z77.22 Contact with and (suspected) exposure to environmental tobacco smoke (acute) (chronic)
CPT/HCPCS: 81000; 84703; 87088; 87804

== ENCOUNTER 2019-09-21 05:35 | Outpatient (CLI) | payer MEDICAID ==
[~2019-09-21] VITALS: Ht 177.8 cm; Wt 79.1 kg
[~2019-09-21 05:35] MED LIST changes: +OSLT75C PO
[2019-09-21] MEDS ORDERED: PREN-53 PO (10:31)
[2019-09-25] MEDS ORDERED: INDO25CA99 PO (07:28)
== END 2019-09-21 10:42 | disposition home or self-care (01) ==
LOC: PREOP 05:35
PROVIDERS: ATTEND Obstetrics & Gynecology
DX: Z01.818 Encounter for other preprocedural examination (principal)

== ENCOUNTER 2019-09-25 06:00 | Day surgery (SDC) | payer MEDICAID ==
[2019-09-25] VITALS (13 sets, daily range): BP systolic 95–109; BP diastolic 56–72
[~2019-09-25] VITALS: Ht 177.8 cm; Wt 77.1 kg
[~2019-09-25 06:00] MED LIST changes: +PREN-53 PO
[2019-09-25] MEDS ORDERED: LACTATED RINGERS 1,000 ML IV PRN (06:09)
--- NOTE | 2019-09-25 07:06 | History & Physical-Surgical ---
HPO-Surgical History of Present Illness Chief Complaint: Shortened cervix Diagnosis/Surgical Indication: shortened cervix, hx of LEEP Procedure: cerclage Date of Surgery: Sep 25, 2019 Weight (Pounds): 150 Weight (Ounces): 0.0 Height (Feet): 5 Height (Inches): 10.00 Allergies and Home Medications Allergies Coded Allergies: No Known Drug Allergies (Unverified , 12/14/17) Home Medications Hbm267/Iron Fumarate/FA/Dss 1 Each Tablet, 1 EACH PO DAILY, (Reported) Patient Home Medication List Home Medication List Reviewed: Yes Past Gqetjie-Iesifa-Iqmyxl Hx Patient Social History Alcohol Use: Denies Use Recreational Drug Use: No Smoking Status: Never a Smoker 2nd Hand Smoke Exposure: Yes Recent Foreign Travel: No Contact w/other who traveled: No Recent Hopitalizations: No Recent Infectious Disease Expo: No Immunizations Up To Date Tetanus Booster (TDap): Unknown Pediatric: Yes Seasonal Allergies Seasonal Allergies: No Surgeries Yes (LEEP, ) Section Respiratory No Cardiovascular No Neurological No Reproductive System Hx Reproductive Disorders: Yes Genitourinary No Gastrointestinal No Musculoskeletal No Endocrine History of Endocrine Disorders: No HEENT History of HEENT Disorders: No Cancer No Psychosocial History of Psychiatric Problem: No Integumentary History of Skin or Integumenta: No Blood Transfusions History of Blood Disorders: No Family Medical History Significant Family History: No Pertinent Family Hx Exam Vital Signs Vital Signs 09/25/19 06:40 Temp 36.9 Pulse 82 Resp 16 B/P (MAP) 106/70 (82) Pulse Ox 98 O2 Delivery Room Air Capillary Refill : Labs Laboratory Tests Test 09/25/19 06:40 Range/Units White Blood Count 9.7 4.3-11.0 10^3/uL Red Blood Count 4.17 L 4.35-5.85 10^6/uL Hemoglobin 11.9 11.5-16.0 G/DL Hematocrit 35 35-52 % Mean Corpuscular Volume 84 80-99 FL Mean Corpuscular Hemoglobin 29 25-34 PG Mean Corpuscular Hemoglobin Concent 34 32-36 G/DL Red Cell Distribution Width 13.2 10.0-14.5 % Platelet Count 217 130-400 10^3/uL Mean Platelet Volume 10.6 H 7.4-10.4 FL Neutrophils (%) (Auto) 59 42-75 % Lymphocytes (%) (Auto) 33 12-44 % Monocytes (%) (Auto) 7 0-12 % Eosinophils (%) (Auto) 1 0-10 % Basophils (%) (Auto) 0 0-10 % Neutrophils # (Auto) 5.7 1.8-7.8 X 10^3 Lymphocytes # (Auto) 3.2 1.0-4.0 X 10^3 Monocytes # (Auto) 0.7 0.0-1.0 X 10^3 Eosinophils # (Auto) 0.1 0.0-0.3 10^3/uL Basophils # (Auto) 0.0 0.0-0.1 10^3/uL General Appearance: Alert, Oriented X3 Respiratory: Clear to Auscultation Cardiovascular: Regular Rate Abdominal: Normal Bowel Sounds Extremities: No Clubbing Skin: No Rashes Neuro: Normal Gait Psych/Mental Status: Mental Status NL Assessment/Plan Assessment and Plan Diagnosis: 15 week IUP Hx of Leep Shortened Cervix P: Vásquez Cerclage- procedure was discussed with patient in detail, all risk covered, all questions answered. CHUCK SUMMERS DO Sep 25, 2019 07:06
[2019-09-25 07:08] LABS: BASOPHILS % (AUTO) 0 % (0-10); EOSINOPHILS # (AUTO) 0.2 10^3/uL (0.0-0.3); EOSINOPHILS % (AUTO) 2 % (0-10); HEMATOCRIT 38 % (35-52); HEMOGLOBIN 13.6 G/DL (11.5-16.0); LYMPHOCYTES % (AUTO) 31 % (12-44); MEAN CORPUSCULAR HEMOGLOBIN 31 PG (25-34); MEAN CORPUSCULAR HGB CONC 36 G/DL (32-36); MEAN CORPUSCULAR VOLUME 85 FL (80-99); MEAN PLATELET VOLUME 10.1 FL (7.4-10.4); MONOCYTES # (AUTO) 0.5 X 10^3 (0.0-1.0); MONOCYTES % (AUTO) 7 % (0-12); NEUTROPHILS # (AUTO) 3.8 X 10^3 (1.8-7.8); NEUTROPHILS % (AUTO) 59 % (42-75); PLATELET COUNT 233 10^3/uL (130-400); RED CELL DISTRIBUTION WIDTH 11.9 % (10.0-14.5); WHITE BLOOD COUNT 6.5 10^3/uL (4.3-11.0)
[2019-09-25] MEDS ORDERED: fentaNYL INJECTION 100 MCG/2 ML AMP ONE (07:14)
[2019-09-25] MEDS ORDERED: D5 LR IV SOLUTION 1,000 ML IV SCH (07:24)
[2019-09-25] MEDS ORDERED: INDO25CA99 PO (07:28)
[2019-09-25] MEDS ORDERED: ONDANSETRON 4 MG/2 ML (SDV) Z0FRAN IVP PRN (07:30)
--- NOTE | 2019-09-25 07:33 | Discharge Inst-Women's Service ---
Discharge Inst-Women's Serv Depart Medication/Instructions New, Converted or Re-Newed RX: RX on Chart Problems Reviewed?: Yes Consults/Follow Up Additional Follow Up: Yes Orders/Referrals Dr. Summers in 1-2 weeks Activity Activity: Activity as Tolerated Driving Instructions: No Driving for 1 Week NO SMOKING: NO SMOKING Nothing Inside Vagina: No Douching, No [place], No Tampons Diet Discharge Diet: No Restrictions Symptoms to Report to : Bleeding Excessive, Pain Increased, Fever Over 101 Degrees F, Vaginal Bleeding Increase, Questions/Concerns For Any Problems or Questions: Contact Your Physician CHUCK SUMMERS DO Sep 25, 2019 07:33
[2019-09-25] MEDS ORDERED: INDOMETHACIN 25 MG (INDOCIN) CAP PO ONE (08:00)
--- NOTE | 2019-09-25 08:01 | NUR ---
heart tones 175
--- NOTE | 2019-09-25 10:27 | Anesthesia-Regional Post-Op ---
Regional Patient Condition Mental Status: Alert, Oriented x3 Circulation: Same as Pre-Op Headache: Absent Sensation: Full Recovery Motor Block: Absent Post Op Complications Complications None Follow Up Care/Instructions Patient Instructions None needed. Anesthesia/Patient Condition Patient is doing well, no complaints, stable vital signs, no apparent adverse anesthesia problems. No complications reported per nursing. BONNIE LEMONS CRNA Sep 25, 2019 10:27
--- NOTE | 2019-09-25 14:23 | OPERATIVE REPORT ---
DATE OF SERVICE: 09/25/2019 PREOPERATIVE DIAGNOSES: 1. A 29-year-old 15 weeks' gestation. 2. Previous history of LEEP, cone biopsy of the cervix. 3. Shortened cervix on ultrasound. POSTOPERATIVE DIAGNOSES: 1. A 29-year-old 15 weeks' gestation. 2. Previous history of LEEP, cone biopsy of the cervix. 3. Shortened cervix on ultrasound. PROCEDURE: Vásquez cerclage. SURGEON: Elgin Soriano DO ANESTHESIA: Spinal. ESTIMATED BLOOD LOSS: Minimal. URINE OUTPUT: 50 mL drained at the start of the procedure. FLUIDS: 1000 mL lactated Ringer's solution. FINDINGS: A visibly shortened cervix on pelvic examination. Otherwise, grossly normal external female genitalia. SPECIMEN SENT: None. INDICATIONS FOR PROCEDURE: This 29-year-old female is a patient, who had sought care and previously had sought gynecologic care in my office, had undergone electrocautery conization of the cervix due to KATHLEEN 3, previous Pap smears and colposcopy confirmation. Her followup was uncomplicated. She had normal Pap smears after this; however, did become and I had counseled the patient at the time of her conization that she may need a cerclage if were to occur after the conization. Risk of this was discussed with the patient in detail and we repeated ultrasound after 15 weeks and out of the first trimester and there was a short cervical shortening as short as 3.2-3.5 cm. Risk of cerclage versus risk of delivery was discussed with the patient in detail. She opted to proceed with cerclage. It was again reviewed in the preoperative area, consent was obtained. The patient was taken to the operating room after all of her questions were answered OPERATIVE REPORT IN DETAIL: Once in the operating room, spinal anesthesia was found to be adequate, placed in dorsal lithotomy position, prepped and draped in normal sterile fashion. A timeout was performed. The bladder was drained using straight catheterization. A weighted speculum was inserted into the patient's vagina. A right angle retractor was used to visualize the cervix, which was grasped with a ring forceps. I then placed two Vásquez cerclages taking four separate bites of the cervix using a #5 Ethibond and the knots were both at 12 o'clock position after which there was no active bleeding noted from any of my dissection planes. I then gently rinsed the vagina of all excess blood using normal saline for irrigation. Again, there was no active bleeding noted from any of my dissection planes. I then removed all the other instruments from the patient's vagina. The patient tolerated the procedure well and was taken to recovery area in stable condition and started on a course of Indocin. heart tones are obtained both before and after the surgery, which are both approximately 155. Job ID: [id number] DocumentID: [id number] Dictated Date: 09/25/2019 11:07:15 Writer Editor Date: 09/25/2019 14:22:32 Dictated By: DO ATIF KINGSTON
== END 2019-09-25 13:15 | disposition home or self-care (01) ==
LOC: SDC 06:00
PROVIDERS: ATTEND Obstetrics & Gynecology
DX: O26.872 Cervical shortening, second trimester (principal); Z3A.15 15 weeks gestation of pregnancy; Z79.899 Other long term (current) drug therapy; Z80.3 Family history of malignant neoplasm of breast; Z80.1 Family history of malignant neoplasm of trachea, bronchus and lung
CPT/HCPCS: 36415; 85025; 86850; 86900; 86901; 87081; 94664

== ENCOUNTER → 2019-11-09 | Outpatient (CLI) | payer MEDICAID ==
[~2019-11-09] MED LIST changes: +INDO25CA99 PO
--- NOTE | 2019-11-09 15:42 | Diagnostic Imaging Report ---
INDICATION: survey. TECHNIQUE: Multiple real-time grayscale images were obtained over the gravid uterus. COMPARISON: None. FINDINGS: There is a single live fetus in a cephalic presentation. heart rate was recorded at 143 BPM. Placenta is posterior. Amniotic fluid volume appears normal. Cervical length is 3.5 cm. kidneys, bladder, and stomach are unremarkable. brain is unremarkable. There is a four-chamber heart. There is a three-vessel cord with normal insertion. spine is unremarkable, although the longitudinal images of the spine are somewhat limited due to position. Biometrical measurements are as follows: Biparietal 5.43 cm, age 22 weeks 4 days. Head circumference 21.07 cm, age 23 weeks 2 days. Abdominal circumference 18.18 cm, age 23 weeks 1 days. Femur length 3.99 cm, age 23 weeks 0 days. Sonographic estimate age: 23 weeks 0 days. Sonographic estimated date of delivery: 03/07/2020. Estimated Weight: 549 gm (+/- 80 gm). LMP percentile: 97%. heart rate: 143 beats per minute. number: 1 of 1. IMPRESSION: Single live IUP of 23 weeks 0 days gestational age. Estimated date of confinement sonographically is 03/07/2020. Dictated by: Dictated on workstation # [id number]
== END ==
LOC: RAD 11-02 09:53
PROVIDERS: ATTEND Obstetrics & Gynecology
DX: Z36.9 Encounter for antenatal screening, unspecified (principal); Z3A.23 23 weeks gestation of pregnancy
CPT/HCPCS: 76805

== ENCOUNTER 2020-03-07 07:16 | Outpatient (RCR) | payer MEDICAID ==
[~2020-03-07] VITALS: Ht 177.8 cm; Wt 98.6 kg
[2020-03-11] MEDS ORDERED: IBUP-844 PO (07:30)
[2020-03-11] MEDS ORDERED: DCS100C PO (07:30)
[2020-03-11] MEDS ORDERED: HYDR-83 PO (07:30)
== END 2020-03-07 10:27 | disposition home or self-care (01) ==
LOC: PREOP 07:16
PROVIDERS: ATTEND Obstetrics & Gynecology
DX: Z01.812 Encounter for preprocedural laboratory examination (principal); Z20.828 Contact with and (suspected) exposure to other viral communicable diseases
CPT/HCPCS: 87635

== ENCOUNTER 2020-03-11 06:06 | Inpatient (IN) | payer MEDICAID ==
[~2020-03-11] VITALS: Ht 177.8 cm; Wt 99.9 kg
[2020-03-11] VITALS (10 sets, daily range): BP systolic 94–117; BP diastolic 59–93
[~2020-03-11 06:06] MED LIST changes: +CITRIC ACID/SOB CIT (BICITRA) 30 ML UDC ONE; +FAMOTIDINE 20MG/2ML IV (PEPCID) ONE; +METOCLOPRAMIDE INJ 10 MG/2 ML (REGLAN) ONE; +ceFAZolin 2 GM IV Premixed 50 ML ONE
[2020-03-11] MEDS ORDERED: METOCLOPRAMIDE INJ 10 MG/2 ML (REGLAN) IV ONE (06:15)
[2020-03-11] MEDS ORDERED: CITRIC ACID/SOB CIT (BICITRA) 30 ML UDC PO ONE (06:15)
[2020-03-11] MEDS ORDERED: ceFAZolin 2 GM IV Premixed 50 ML IV ONE (06:15)
[2020-03-11] MEDS ORDERED: CATHETER FLUSH 10 ML SYR IV PRN (06:15)
[2020-03-11] MEDS ORDERED: LACTATED RINGERS 1,000 ML IV PRN ×2 (06:15)
[2020-03-11] MEDS ORDERED: FAMOTIDINE 20MG/2ML IV (PEPCID) IV ONE (06:15)
--- NOTE | 2020-03-11 06:20 | NUR ---
DOREEN ODELL presented to unit via AMBULATION from ED, accompanied by ADULT FEMALE, with c/o SCHEDULED SECTION . DOREEN ODELL weighed, gowned, voided, and to bed. EFHM and TOCO applied, VS taken. DOREEN ODELL oriented to bed controls, call light, TV, heat, and A/C controls. ABOVE AND FURTHER ASSESSMENTS AND CARE CARRIED OUT PER LALY LORENZO RN.
[2020-03-11 06:51] LABS: BASOPHILS % (AUTO) 0 % (0-10); EOSINOPHILS # (AUTO) 0.1 10^3/uL (0.0-0.3); EOSINOPHILS % (AUTO) 1 % (0-10); HEMATOCRIT 35 % (35-52); HEMOGLOBIN 11.8 G/DL (11.5-16.0); LYMPHOCYTES # (AUTO) 1.8 X 10^3 (1.0-4.0); LYMPHOCYTES % (AUTO) 16 % (12-44); MEAN CORPUSCULAR HEMOGLOBIN 28 PG (25-34); MEAN CORPUSCULAR HGB CONC 34 G/DL (32-36); MEAN CORPUSCULAR VOLUME 84 FL (80-99); MEAN PLATELET VOLUME 10.3 FL (7.4-10.4); MONOCYTES % (AUTO) 9 % (0-12); NEUTROPHILS # (AUTO) 8.3 X 10^3 (1.8-7.8); NEUTROPHILS % (AUTO) 74 % (42-75); PLATELET COUNT 232 10^3/uL (130-400); RED CELL DISTRIBUTION WIDTH 13.3 % (10.0-14.5); WHITE BLOOD COUNT 11.2 10^3/uL (4.3-11.0)
--- NOTE | 2020-03-11 07:00 | NUR ---
MRSA SWAB OBTAINED AND SENT TO LAB, RESULTS PENDING AT THIS TIME, INT. NOT COMPLETED PER THIS RN.
[2020-03-11] MEDS ORDERED: fentaNYL INJECTION 100 MCG/2 ML AMP ONE (07:09)
[2020-03-11] MEDS ORDERED: OXYTOCIN PRE-MIX DRIP 1,000 ML IV ONE (07:14)
[2020-03-11] MEDS ORDERED: BUPIVACAINE 0.5% 30 ML (SENSORCAINE) VIAL ONE (07:14)
[2020-03-11] MEDS ORDERED: ONDANSETRON 4 MG/2 ML (SDV) Z0FRAN ONE (07:14)
[2020-03-11] MEDS ORDERED: KETOROLAC 30 MG/ML VIAL ONE ×2 (07:14→07:21)
[2020-03-11] MEDS ORDERED: DEXAMETHASONE 10 MG/ML (DECADRON) 1 ML VIAL ONE (07:14)
--- NOTE | 2020-03-11 07:17 | History & Physical-OB ---
OB - Chief Complaint & HPI Date/Time Date of Admission: Date of Admission: Mar 11, 2020 at 06:06 Date seen by a Provider: Mar 11, 2020 Time Seen by a Provider: 07:10 Chief Complaint/History OB-Reason for Admission/Chief: Section Hx : 2 Hx Para: 1 Expected Date of Delivery: Mar 17, 2020 Gestational Age in Weeks: 39 Gestational Age in Days: 1 Admission Nurse Assessment Rev: Yes History of Labs O neg Antibody neg RNI RPR NR HBsAg NR HIV NR GC neg GBS pos Allergies and Home Medications Allergies Coded Allergies: No Known Drug Allergies (Unverified , 12/14/17) Home Medications Upr166/Iron Fumarate/FA/Dss 1 Each Tablet, 1 EACH PO DAILY, (Reported) Patient Home Medication List Home Medication List Reviewed: Yes OB - History Hx of Present Care: Yes Ultrasounds: Normal mid trimester US Obstetrical Complications: None (Short cervix, cerclage in place) Medical Complications: None Obstetrical History Hx Termination: No Hx Multiple Gestation: No Hx Stillbirth: No Hx Complication: No Hx Induced Hypertens: No Hx Maternal Gestational Diabet: No Delivery History Hx Blood Disorders: No Patient Past Medical History n/a Social History/Family History Recent Infectious Disease Expo: No Alcohol Use: Denies Use Recreational Drug Use: No 2nd Hand Smoke Exposure: Yes Immunizations Tetanus Booster (TDap): Unknown OB - Admission Exam Physical Exam Vitals: Vital Signs 03/11/20 07:06 Temp 36.8 Pulse 98 Resp 18 Pulse Ox 98 O2 Delivery Room Air HEENT: NCAT Heart: Rhythm Normal Lungs: Clear Abdomen: Gravid Extremities: Normal Reflexes: Normal Heart Rate: 130's Accelerations: Accelerations Present Decelerations: No Decelerations Short Term Variability: Present Intermediate Variability: Average (6-25) Contractions on Admission: >10 Minutes Apart Intensity: Mild Labs Laboratory Tests Test 03/11/20 06:41 Range/Units White Blood Count 11.2 H 4.3-11.0 10^3/uL Red Blood Count 4.17 L 4.35-5.85 10^6/uL Hemoglobin 11.8 11.5-16.0 G/DL Hematocrit 35 35-52 % Mean Corpuscular Volume 84 80-99 FL Mean Corpuscular Hemoglobin 28 25-34 PG Mean Corpuscular Hemoglobin Concent 34 32-36 G/DL Red Cell Distribution Width 13.3 10.0-14.5 % Platelet Count 232 130-400 10^3/uL Mean Platelet Volume 10.3 7.4-10.4 FL Neutrophils (%) (Auto) 74 42-75 % Lymphocytes (%) (Auto) 16 12-44 % Monocytes (%) (Auto) 9 0-12 % Eosinophils (%) (Auto) 1 0-10 % Basophils (%) (Auto) 0 0-10 % Neutrophils # (Auto) 8.3 H 1.8-7.8 X 10^3 Lymphocytes # (Auto) 1.8 1.0-4.0 X 10^3 Monocytes # (Auto) 1.0 0.0-1.0 X 10^3 Eosinophils # (Auto) 0.1 0.0-0.3 10^3/uL Basophils # (Auto) 0.0 0.0-0.1 10^3/uL OB - Assessment/Plan/Diagnosis Assessment Assessment: section Admission Dx 29 yo @ 39.1 Previous Vásquez cerclage in cervix Admission Status: Inpatient Order (span 2 midnights) Reason for Inpatient Admission: Repeat Plan Other Plan Removal of cerclage followed by CHUCK MIDDLETON DO Mar 11, 2020 07:17
--- NOTE | 2020-03-11 07:29 | Discharge Inst-Women's Service ---
Discharge Inst-Women's Serv Depart Medication/Instructions New, Converted or Re-Newed RX: RX on Chart Final Diagnosis POD 2 RLTCS Problems Reviewed?: Yes Consults/Follow Up Additional Follow Up: Yes Orders/Referrals Dr. Soriano in 7-10 days and in 6 weeks Activity Activity: Activity as Tolerated Driving Instructions: No Driving for 1 Week NO SMOKING: NO SMOKING Nothing Inside Vagina: No Douching, No [place], No Tampons Diet Discharge Diet: No Restrictions Symptoms to Report to : Bleeding Excessive, Pain Increased, Fever Over 101 Degrees F, Vaginal Bleeding Increase, Questions/Concerns For Any Problems or Questions: Contact Your Physician Skin/Wound Care Infection Signs and Symptoms: Increased Redness, Foul Odor of Wound, Increased Drainage, Skin Itchy or Has a Rash, Increased Swelling, Temperature Above 101 F Operative Area Clean and Dry: Keep Incision Clean/Dry Stitches/[place]/Dermabond: Dermabond, Care of Stitches Bathing Instructions: CHUCK Carlson DO Mar 11, 2020 07:29
[2020-03-11] MEDS ORDERED: TETANUS,DIPTH,PERTUSS P/F (BOOSTRIX) 0.5 ML VIAL IM SCH (07:30)
[2020-03-11] MEDS ORDERED: IBUP-844 PO (07:30)
[2020-03-11] MEDS ORDERED: HYDR-83 PO (07:30)
[2020-03-11] MEDS ORDERED: DCS100C PO (07:30)
[2020-03-11] MEDS ORDERED: ONDANSETRON 4 MG/2 ML (SDV) Z0FRAN IVP PRN (07:30)
[2020-03-11] MEDS ORDERED: MEASLES,MUMPS,RUBELLA 1 EA INJ SC SCH (07:30)
[2020-03-11] MEDS: OXYTOCIN PRE-MIX DRIP 500 ML IV SCH ×2 (07:51→08:17)
[2020-03-11] MEDS ORDERED: PHENYLEPHRINE 100 MCG/ML 10 ML (ANESTHESIA) SYR ONE (08:23)
--- NOTE | 2020-03-11 09:30 | NUR ---
Transferred to room 308 per bed. Accompanied by pt's sister and this RN. 1045 Pad changed with moderate amount of rubra flow and one small clot. Fundus firm.
[2020-03-11] MEDS: DOCUSATE SODIUM 100 MG (COLACE) CAP PO SCH ×2 (10:48→20:38)
[2020-03-11] MEDS: HYDROcodone/APAP 5 MG/325 MG (LORTAB) TAB PO PRN ×3 (10:49→23:50)
[2020-03-11] MEDS ORDERED: CATHETER FLUSH 10 ML SYR IV SCH (14:00)
[2020-03-11] MEDS: KETOROLAC 30 MG/ML VIAL IV SCH ×2 (14:13→20:37)
--- NOTE | 2020-03-11 14:15 | NUR ---
Pt complains of cramping. Up to BR - voided 1100ml. Pad changed and street clothing put on. Ambulated to chair - tolerating very well. Minimal pain after voiding.
--- NOTE | 2020-03-11 15:14 | OPERATIVE REPORT ---
DATE OF SERVICE: PREOPERATIVE DIAGNOSES: 1. A 29-year-old G2, P1 at 39 weeks and 1-day gestation. 2. Previous section. 3. Vásquez cerclage. POSTOPERATIVE DIAGNOSES: 1. A 29-year-old G2, P1 at 39 weeks and 1-day gestation. 2. Previous section. 3. Vásquez cerclage. PROCEDURE: Repeat low transverse section and removal of Vásquez cerclage. SURGEON: Elgin Soriano DO DAY CARE WORKER: Carolyn Osman DNP, who was necessary for manipulation and retraction throughout the procedure. ANESTHESIA: Spinal. ESTIMATED BLOOD LOSS: 500 mL. URINE OUTPUT: 50 mL clear at the end of the procedure. FLUIDS: 1000 mL lactated Ringer's solution. FINDINGS: A live male weighing 9 pounds 10 ounces, Apgars of 8 and 9. Grossly normal appearing uterus, bilateral fallopian tubes and ovaries. SPECIMEN SENT: None. INDICATIONS FOR PROCEDURE: This 29-year-old female is a patient who had sought care in my office. She was identified as having a short cervix with a history of LEEP, conization in the past. We decided to place a cerclage at approximately 18 weeks. The cerclage had stayed in place throughout the entire and the was uncomplicated otherwise, 39 weeks with plan for repeat and removal of the cerclage. I discussed with the patient this procedure in detail, risks involved in the procedure. After all of her questions were answered, we reviewed them once more in the preoperative area and consent was obtained. The patient was taken to the operating room. OPERATIVE REPORT IN DETAIL: Once in the operating room, spinal analgesia was found to be adequate. She was placed in the supine position with leftward tilt, prepped and draped in normal sterile fashion. Prior to prepping the patient however, due to a sterile speculum examination, identified both Vásquez cerclage sutures and removed them both by cutting the suture at the knot. This was done without issue or complication. Once the patient is prepped, a timeout was performed and anesthesia was tested. A Pfannenstiel skin incision was then made through the previously existing scar using a knife and carried down to underlying fascia using Bovie cautery. Fascial incision extended laterally using Bovie cautery. Superior aspect of fascial incision was then grasped with Justin clamps, tented up and dissected off the underlying rectus muscles. The inferior aspect of the fascial incision was then grasped with Justin clamps, tented up and dissected off the underlying rectus muscles. Rectus muscle was then dissected down the midline using Cota scissors, which exposed the peritoneum, which I entered bluntly and extended using blunt traction. Kishore ring retractor was placed in the peritoneal incision, which offers excellent lateral sidewall retraction. I then identified the lower uterine segment, which was found to be thinned out and make a low transverse incision to the vesicouterine peritoneum and bluntly dissected this off the lower uterine segment. I proceeded with myotomy until membranes were visualized, at which point I extended the uterine incision laterally and superiorly using bandage scissors. Amniotomy was performed in the process of doing this, clear fluid was noted. The infant was found in vertex presentation. With gentle fundal pressure, the 's head is elevated up to the incision where it is delivered through the incision. The nares and oropharynx were bulb suctioned. There was a nuchal cord reduced x1. Anterior and posterior shoulders were delivered. The was brought out onto the operative field where the cord was doubly clamped and cut and the infant was handed off to waiting nurses in attendance. There is a true knot noted in the cord. Cord blood was collected, 3-vessel cord with intact placenta was delivered spontaneously thereafter. IV Pitocin was initiated to facilitate uterine contraction. Uterine fundus confirmed bimanual massage. The uterus was then exteriorized and cleared of all endometrial clots and debris. I then proceeded with closing the uterine incision using 0 Vicryl suture in running locked fashion. A second layer of imbricating 0 Monocryl was placed. Excellent hemostasis was noted after doing this. I then placed the uterus back within the pelvis and copiously irrigated the pelvis using normal saline. There was no active bleeding noted from any of my dissection planes. I placed Interceed antiadhesive over my low transverse incision to prevent postoperative adhesions and then removed the Kishore ring retractor. I then proceeded with closing the peritoneum using 3-0 Vicryl suture in running fashion. The rectus muscle reapproximated using 3-0 Vicryl suture in interrupted fashion. The fascia was reapproximated using 0 Vicryl suture in running fashion. The subcutaneous tissue was reapproximated using 3-0 plain interrupted subcutaneous stitch and skin reapproximated using 4-0 Monocryl running subcuticular. Dermabond was applied to incision and sterile dressing with adhesive white tape. Greene catheter was left in place. The patient tolerated the procedure well and was taken to recovery area in stable condition. Lap and sponge counts were correct at the end of procedure. Instrument counts correct as well. Two grams of Ancef given preoperatively for infection prophylaxis. Job ID: [id number] DocumentID: [id number] Dictated Date: 03/11/2020 08:50:09 Bleach Boiler Puller Date: 03/11/2020 15:13:53 Dictated By: DO ATIF KINGSTON
[2020-03-12 00:30] VITALS: BP 111/69
[2020-03-12] MEDS: KETOROLAC 30 MG/ML VIAL IV SCH ×2 (02:52→19:49)
[2020-03-12 04:30] VITALS: BP 107/65
[2020-03-12 05:42] LABS: BASOPHILS % (AUTO) 0 % (0-10); EOSINOPHILS % (AUTO) 0 % (0-10); HEMATOCRIT 33 % (35-52); HEMOGLOBIN 10.8 G/DL (11.5-16.0); LYMPHOCYTES # (AUTO) 1.6 X 10^3 (1.0-4.0); LYMPHOCYTES % (AUTO) 9 % (12-44); MEAN CORPUSCULAR HEMOGLOBIN 28 PG (25-34); MEAN CORPUSCULAR HGB CONC 33 G/DL (32-36); MEAN CORPUSCULAR VOLUME 86 FL (80-99); MEAN PLATELET VOLUME 10.1 FL (7.4-10.4); MONOCYTES # (AUTO) 1.8 X 10^3 (0.0-1.0); MONOCYTES % (AUTO) 10 % (0-12); NEUTROPHILS # (AUTO) 15.2 X 10^3 (1.8-7.8); NEUTROPHILS % (AUTO) 81 % (42-75); PLATELET COUNT 226 10^3/uL (130-400); RED CELL DISTRIBUTION WIDTH 13.4 % (10.0-14.5); WHITE BLOOD COUNT 18.7 10^3/uL (4.3-11.0)
--- NOTE | 2020-03-12 06:37 | Anesthesia-Regional Post-Op ---
Regional Patient Condition Mental Status: Alert, Oriented x3 Circulation: Same as Pre-Op Headache: Absent Sensation: Full Recovery Motor Block: Absent Post Op Complications Complications None Follow Up Care/Instructions Patient Instructions None needed. Anesthesia/Patient Condition Patient is doing well, no complaints, stable vital signs, no apparent adverse anesthesia problems. No complications reported per nursing. MICAH SOTO CRNA Mar 12, 2020 06:37
[2020-03-12] MEDS: HYDROcodone/APAP 5 MG/325 MG (LORTAB) TAB PO PRN ×2 (06:55→14:38)
--- NOTE | 2020-03-12 07:29 | Postpartum Progress Note ---
Note Note Day # 1 Subjective: Patient is without complaints. Ambulating, voiding. Tolerating a regular diet without nausea or vomiting. Normal lochia. Pain is well controlled with oral pain medications. Objective: Physical Exam: General - Alert and oriented, no apparent distress Abdomen - Soft, appropriately tender to palpation, non-distended, fundus firm at umbilicus Extremities - no edema, negative Sanjuana's bilaterally Incision - clean/dry/intact Assessment: POD 1 RLTCS Acute blood loss anemia Plan: Routine care. Encourage breast feeding. Encourage ambulation. Ferrous sulfate supplementation. Plan for discharge tomorrow Vitals - Labs Vital Signs - I&O Vital Signs Date Time Temp Pulse Resp B/P (MAP) Pulse Ox O2 Delivery O2 Flow Rate FiO2 03/12/20 04:30 35.9 64 20 107/65 (79) 98 03/12/20 00:30 36.3 67 18 111/69 (83) 97 Room Air 03/11/20 20:00 37.3 65 18 112/59 (76) 97 Room Air 03/11/20 14:13 37.9 03/11/20 14:10 37.9 78 16 115/73 (87) 97 Room Air 03/11/20 10:45 36.8 63 16 112/79 (90) 98 Room Air 03/11/20 09:45 36.2 72 16 117/76 (90) 98 Room Air 03/11/20 09:15 Room Air 03/11/20 09:15 36.9 18 114/93 (100) 98 Room Air 03/11/20 09:00 Room Air 03/11/20 09:00 36.9 18 103/67 (79) 98 Room Air 03/11/20 08:45 36.6 18 110/82 (91) 98 Room Air 03/11/20 08:45 Room Air 03/11/20 08:30 Room Air 03/11/20 08:30 36.4 18 94/62 (73) 96 Room Air I & O 03/12/20 07:00 Intake Total 4670 ml Output Total 6150 ml Balance -1480 ml Labs Laboratory Tests 03/12/20 05:27: White Blood Count 18.7H, Red Blood Count 3.84L, Hemoglobin 10.8L, Hematocrit 33L , Mean Corpuscular Volume 86, Mean Corpuscular Hemoglobin 28, Mean Corpuscular Hemoglobin Concent 33, Red Cell Distribution Width 13.4, Platelet Count 226, Mean Platelet Volume 10.1, Neutrophils (%) (Auto) 81H, Lymphocytes (%) (Auto) 9L , Monocytes (%) (Auto) 10, Eosinophils (%) (Auto) 0, Basophils (%) (Auto) 0, Neutrophils # (Auto) 15.2H, Lymphocytes # (Auto) 1.6, Monocytes # (Auto) 1.8H, Eosinophils # (Auto) 0.0, Basophils # (Auto) 0.0 Microbiology 03/11/20 MRSA Screen - Final, Complete MRSA not isolated PATRICK GIVENS,MED STUDENT Mar 12, 2020 07:29
--- NOTE | 2020-03-12 07:35 | NUR ---
Report given to Poonam PEREZ
--- NOTE | 2020-03-12 08:03 | NUR ---
Dr Soriano to see patient and review plan of care with pt.
[2020-03-12] MEDS ORDERED: IBUPROFEN 600 MG (MOTRIN) TAB PO ONE (08:16)
[2020-03-12 08:26] VITALS: BP 117/73
[2020-03-12] MEDS: DOCUSATE SODIUM 100 MG (COLACE) CAP PO SCH ×2 (08:32→20:38)
[2020-03-12 14:36] VITALS: BP 108/67
[2020-03-12] MEDS: IBUPROFEN 600 MG (MOTRIN) TAB PO SCH ×3 (14:37→23:53)
[2020-03-12 20:00] VITALS: BP 117/63
[2020-03-13] MEDS: HYDROcodone/APAP 5 MG/325 MG (LORTAB) TAB PO PRN (01:31)
[2020-03-13 02:00] VITALS: BP 108/65
[2020-03-13] MEDS: IBUPROFEN 600 MG (MOTRIN) TAB PO SCH ×2 (04:05→10:42)
--- NOTE | 2020-03-13 07:38 | Postpartum Progress Note ---
Note Note Day # 2 Subjective: Patient is without complaints. Ambulating, voiding. Tolerating a regular diet without nausea or vomiting. Normal lochia. Pain is well controlled with oral pain medications. Objective: Physical Exam: General - Alert and oriented, no apparent distress Abdomen - Soft, appropriately tender to palpation, non-distended, fundus firm at umbilicus Extremities - no edema, negative Sanjuana's bilaterally Incision - clean/dry/intact Assessment: POD 2 RLTCS Acute blood loss anemia Plan: Routine care. Encourage breast feeding. Encourage ambulation. Ferrous sulfate supplementation. Plan for discharge today Vitals - Labs Vital Signs - I&O Vital Signs Date Time Temp Pulse Resp B/P (MAP) Pulse Ox O2 Delivery O2 Flow Rate FiO2 03/13/20 02:00 36.1 97 18 108/65 (79) 97 Room Air 03/12/20 21:00 95 Room Air 03/12/20 20:00 36.7 97 16 117/63 (81) 95 Room Air 03/12/20 14:36 36.1 83 18 108/67 (81) 97 Room Air 03/12/20 08:26 36.9 96 18 117/73 (88) 97 Room Air I & O 03/13/20 07:00 Intake Total 1500 ml Balance 1500 ml Labs Microbiology 03/11/20 MRSA Screen - Final, Complete MRSA not isolated PATRICK GIVENS,MED STUDENT Mar 13, 2020 07:38
[2020-03-13 08:15] VITALS: BP 120/62
[2020-03-13] MEDS: DOCUSATE SODIUM 100 MG (COLACE) CAP PO SCH (08:21)
== END 2020-03-13 11:15 | disposition home or self-care (01) | DRG 786 ==
LOC: LDRP 06:06
PROVIDERS: ADMIT Obstetrics & Gynecology; ATTEND Obstetrics & Gynecology
PROC: 0UCC0ZZ Extirpation of Matter from Cervix, Open Approach (ICD-10-PCS; 2020-03-11)
PROC: 10D00Z1 Extraction of Products of Conception, Low, Open Approach (ICD-10-PCS; principal; 2020-03-11 07:22)
DX: O34.211 Maternal care for low transverse scar from previous cesarean delivery (principal); O34.33 Maternal care for cervical incompetence, third trimester; D62 Acute posthemorrhagic anemia; Z3A.39 39 weeks gestation of pregnancy; Z37.0 Single live birth; O99.03 Anemia complicating the puerperium
CPT/HCPCS: 36415; 83033; 85025; 86850; 86900; 86901; 87081; 94664